=== PATIENT | female | born 1980 | race Caucasian/White ===

== ENCOUNTER 2020-09-30 22:53 | Emergency (ER) | payer BC, SELFPAY ==
--- NOTE | ~2020-09-30 | CT_ITS ---
EXAMINATION: CT ABDOMEN AND PELVIS WITHOUT CONTRAST CLINICAL INFORMATION: Left flank pain. COMPARISON: None. TECHNIQUE: Contiguous axial thin section helical images of the abdomen and pelvis were performed without oral or IV contrast. The data set was reformatted in the coronal and sagittal planes and reviewed on an independent workstation. DLP: 797 mGy-cm. FINDINGS: The visualized lung bases are clear. The visualized portions of the heart are unremarkable. There is a small hiatal hernia. The liver is of normal size and attenuation without focal lesions nor intrahepatic biliary ductal dilation. A normal gallbladder is identified. There is no wall thickening or discernible pericholecystic fluid. The spleen, pancreas, adrenal glands are unremarkable. Both kidneys are of normal size and attenuation. There is left grade 2 hydroureteronephrosis secondary to a 5 mm obstructive distal left ureteral calculus. There is mild left perinephric and periureteral stranding. There is no abdominal free fluid. There is neither mesenteric nor retroperitoneal lymphadenopathy. Normal unopacified loops of small and large bowel are identified. There is a 3.2 cm right ovarian cyst There is no pelvic free fluid. The urinary bladder is unremarkable. There is neither pelvic nor inguinal lymphadenopathy. Bone windows: Neither sclerotic nor lytic bone lesions are identified. CT/CT abdomen pelvis wo con IMPRESSION: Left grade 2 hydroureteronephrosis secondary to an obstructive 5 mm distal left ureteral calculus. 3.2 cm right ovarian cyst. Automated exposure control (Care Dose) Adjustment of the mA and/or kv according to patient size (this includes techniques or standardized protocols for targeted exams where dose is matched to indication / reason for exam; i.e. extremities or head).
[2020-09-30 23:00] VITALS: BP 159/79; PULSE 94; RESP 20; TEMP 37.3; O2SAT 93; BMI 33.4
--- NOTE | 2020-09-30 23:15 | ED_ITS ---
HPI - Female Genitourinary General Chief complaint: Urogenital-Female Stated complaint: vomiting,pelvic pain Time Seen by Provider: 09/30/20 23:07 Source: patient Mode of arrival: ambulatory Limitations: no limitations History of Present Illness HPI Narrative: Patient miscarriage us today complaining of sudden onset of sharp pain and left flank radiating left lower quadrant with nausea vomited 2 times prior to arrival just prior to arrival also complaining of nasal congestion and feel left ear is blocked tested negative for COVID . Patient's mother has history of kidney stones no hematuria noted no urinary complaints no vaginal discharge no history of any ovarian cyst Related Data Previous Rx's Medication Instructions Recorded ondansetron 4 mg PO Q6-8H PRN #7 tab 10/01/20 oxycodone 5 mg PO Q6H PRN #20 tab 10/01/20 tamsulosin [Flomax] 0.4 mg PO DAILY #7 cap 10/01/20 Allergies Allergy/AdvReac Type Severity Reaction Status Date / Time amoxicillin Allergy Rash Verified 09/30/20 22:59 Review of Systems Review of Systems: Constitutional : No Weight loss, No Fever, No Chills ENT/Mouth : No sore throat, No Rhinorrhea Eyes: No Eye Pain, No Swelling Cardiovascular : No Chest Pain, no palpitations Respiratory : No Cough, No Sputum, no shortness of breath Gastrointestinal : + Nausea, ++ Vomiting, No Diarrhea, + abdominal Pain, no black stools Genitourinary : No Dysuria, No Urinary Frequency Musculoskeletal : No joint pain, No Myalgias, No Joint Swelling Skin : No Skin Lesions, No rash Neuro : No Weakness, No Numbness, No Dizziness, No Headache Psych : No Anxiety/Panic, No Depression Heme/Lymph: No Bruising, No Lymphadenopathy Endocrine : No Polyuria, No Polydipsia All other systems reviewed and are negative PMFSH Past Medical History Medical History No known health problems Social History Social History Advance Directives: No Advance Directives Information Provided: No Physical Exam Vital Signs: Vital Signs: Last Vital Signs Temp 99.2 F 09/30/20 23:00 Pulse 94 09/30/20 23:00 Resp 20 09/30/20 23:00 BP 159/79 H 09/30/20 23:00 Pulse Ox 93 09/30/20 23:00 Body Mass Index 33.4 Appearance: Alert. Oriented X3. In moderate distress. Eyes: Pupils equal, round and reactive to light. ENT: Pharynx normal. Neck: Normal inspection. Neck supple. CVS: Normal heart rate and rhythm. Pulses normal. Respiratory: No respiratory distress. Breath sounds normal. Abdomen: Soft and nontender. Bowel sounds are present, no mass palpable, left CVA tenderness Skin: Skin warm and dry. Normal skin color. Normal skin turgor. Extremities: No lower extremity edema. Neuro: Oriented X 3. No motor deficit. No sensory deficit. MDM - Female Genitourinary MDM Narrative Medical decision making narrative: Patient's sudden onset of left flank and left lower quadrant pain sharp in character family history of kidney stone and mother clinically seems to be kidney stone will give IV fluids pain medication CT scan abdomen rule out kidney stone 00:30 CT scan showed mild hydro with 3 mm stone in [place] , final report pending Lab Data Attestation: I reviewed the patient's lab results. Result diagrams: 09/30/20 23:42 09/30/20 23:42 Labs: Lab Results 09/30/20 09/30/20 09/30/20 Range/Units 23:42 23:42 23:42 WBC 9.5 (4.8-10.8) X10*3/uL RBC 4.60 (4.20-5.50) X10*6/uL Hgb 13.9 (12.0-16.0) g/dl Hct 40.0 (37-47) % MCV 87.0 (80-98) fL MCH 30.2 (27.0-33.0) pg MCHC 34.8 (31.0-35.0) g/dl RDW 13.0 (11.0-16.0) % Plt Count 245 (160-400) X10*3/uL MPV 9.3 L (9.4-12.3) fL Immature Gran % (Auto) 0.2 (0.0-0.4) % Neut % (Auto) 48.9 (45-73) % Lymph % (Auto) 42.7 H (20-40) % [place] % (Auto) 6.2 (2-11) % Eos % (Auto) 1.6 (0-4) % Baso % (Auto) 0.4 (0-2) % Lymph # (Auto) 4.1 (1.2-4.9) X10*3/uL [place] # (Auto) 0.6 (0.1-1.2) X10*3/uL Eos # (Auto) 0.2 (0.0-0.4) X10*3/uL Baso # (Auto) 0.0 (0.0-0.2) X10*3/uL Abs Immat Gran (auto) 0.02 (0.00-0.03) X10*3/uL Absolute Neuts (auto) 4.7 (2.0-8.3) X10*3/uL Absolute Nucleated RBC 0.000 (0.0-0.012) X10*3/uL Nucleated RBC % (auto) 0.0 (0.0-0.2) /100WBC Sodium (135-145) mmol/L Potassium (3.3-5.1) mmol/L Chloride (96-108) mmol/L Carbon Dioxide (22-29) mmol/L Anion Gap (12-20) BUN (9-16) mg/dL Creatinine (0.5-1.4) mg/dL Estim Creat Clear Calc Estimated GFR Random Glucose (60-115) mg/dL Calcium (8.4-10.2) mg/dL Urine Color YELLOW Urine Appearance CLEAR Urine pH 6.0 (5.0-8.0) Ur Specific [place] >= 1.030 H (1.005-1.025) Urine Protein NEG (NEG-TRACE) MG/DL Urine Glucose (UA) NEG (NEG) MG/DL Urine Ketones NEG (NEG) MG/DL Urine Blood 1+ H (NEG) Urine Nitrite NEG (NEG) Ur Leukocyte Esterase NEG (NEG) Urine RBC 10-14 H (0) /HPF Urine WBC 1-4 (0-4) /HPF Ur Squamous Epith Cells 2+ /LPF Urine Bacteria 2+ /LPF Urine Mucus 1+ /LPF Urine Test NEGATIVE (NEGATIVE) 09/30/20 Range/Units 23:42 WBC (4.8-10.8) X10*3/uL RBC (4.20-5.50) X10*6/uL Hgb (12.0-16.0) g/dl Hct (37-47) % MCV (80-98) fL MCH (27.0-33.0) pg MCHC (31.0-35.0) g/dl RDW (11.0-16.0) % Plt Count (160-400) X10*3/uL MPV (9.4-12.3) fL Immature Gran % (Auto) (0.0-0.4) % Neut % (Auto) (45-73) % Lymph % (Auto) (20-40) % [place] % (Auto) (2-11) % Eos % (Auto) (0-4) % Baso % (Auto) (0-2) % Lymph # (Auto) (1.2-4.9) X10*3/uL [place] # (Auto) (0.1-1.2) X10*3/uL Eos # (Auto) (0.0-0.4) X10*3/uL Baso # (Auto) (0.0-0.2) X10*3/uL Abs Immat Gran (auto) (0.00-0.03) X10*3/uL Absolute Neuts (auto) (2.0-8.3) X10*3/uL Absolute Nucleated RBC (0.0-0.012) X10*3/uL Nucleated RBC % (auto) (0.0-0.2) /100WBC Sodium 143 (135-145) mmol/L Potassium 3.8 (3.3-5.1) mmol/L Chloride 106 (96-108) mmol/L Carbon Dioxide 25 (22-29) mmol/L Anion Gap 16 (12-20) BUN 14 (9-16) mg/dL Creatinine 0.90 (0.5-1.4) mg/dL Estim Creat Clear Calc 105.7 Estimated GFR > 60 Random Glucose 98 (60-115) mg/dL Calcium 8.8 (8.4-10.2) mg/dL Urine Color Urine Appearance Urine pH (5.0-8.0) Ur Specific [place] (1.005-1.025) Urine Protein (NEG-TRACE) MG/DL Urine Glucose (UA) (NEG) MG/DL Urine Ketones (NEG) MG/DL Urine Blood (NEG) Urine Nitrite (NEG) Ur Leukocyte Esterase (NEG) Urine RBC (0) /HPF Urine WBC (0-4) /HPF Ur Squamous Epith Cells /LPF Urine Bacteria /LPF Urine Mucus /LPF Urine Test (NEGATIVE) Discharge Plan Discharge Clinical Impression: Kidney stone on left side Patient Disposition: Home, Self-Care Instructions: Kidney Stones (ED) Additional Instructions: Drink plenty of fluids Pain medicine as advised. Follow-up with urologist Prescriptions: New ondansetron 4 mg tablet,disintegrating 4 mg PO Q6-8H PRN (Reason: nausea and vomiting) Qty: 7 RF: 0 oxycodone 5 mg tablet 5 mg PO Q6H PRN (Reason: Pain, Moderate) Qty: 20 RF: 0 tamsulosin [Flomax] 0.4 mg capsule 0.4 mg PO DAILY Qty: 7 RF: 0 Referrals: Yosef Teran MD [Physician] - 1 week
[2020-09-30] MEDS: 0.9 % Sodium Chloride 1,000 ML 999 ML IVCONT (23:35)
[2020-09-30] MEDS: Morphine Sulfate 4 MG/ML CARTRIDGE IVPUSH (23:35)
[2020-09-30] MEDS: ondansetron HCL 4 MG/2 ML VIAL IVPUSH (23:35)
[2020-09-30 23:49] LABS: MANUAL DIFF FLAG NO
[2020-09-30 23:50] LABS: Basophils Percent Auto 0.4 % (0-2); Eosinophils Absolute Auto 0.2 X10*3/uL (0.0-0.4); Eosinophils Percent Auto 1.6 % (0-4); Hemoglobin 13.9 g/dl (12.0-16.0); Imm Gran Abs Auto 0.02 X10*3/uL (0.00-0.03); Imm Gran Pct Auto 0.2 % (0.0-0.4); Lymphocytes Absolute Auto 4.1 X10*3/uL (1.2-4.9); Lymphocytes Percent Auto 42.7 % (20-40); Mean Corpuscular HGB Conc 34.8 g/dl (31.0-35.0); Mean Corpuscular Hemoglobin 30.2 pg (27.0-33.0); Mean Platelet Volume 9.3 fL (9.4-12.3); Monocytes Absolute Auto 0.6 X10*3/uL (0.1-1.2); Monocytes Percent Auto 6.2 % (2-11); Neutrophils Absolute Auto 4.7 X10*3/uL (2.0-8.3); Neutrophils Percent Auto 48.9 % (45-73); Platelet Count 245 X10*3/uL (160-400); White Blood Count 9.5 X10*3/uL (4.8-10.8)
[2020-09-30 23:52] LABS: Glucose Urine UA NEG (NEG); Leukocyte Esterase Urine NEG (NEG); Nitrite Urine NEG (NEG); Specific Gravity - Urine >= 1.030 (1.005-1.025); Urine Blood 1+ (NEG); Urine Ketones NEG (NEG); Urine Protein NEG (NEG-TRACE)
[2020-09-30 23:53] LABS: Appearance Urine CLEAR; Color Urine YELLOW
[2020-10-01] VITALS: BP 140/80; PULSE 91; RESP 20; O2SAT 96
[2020-10-01] LABS: Bacteria Urine 2+ /LPF; Mucus Urine 1+ /LPF; Squamous Epithelial Cell Urine 2+ /LPF
[2020-10-01 00:01] LABS: UPreg QC Valid YES; Urine Pregnancy NEGATIVE (NEGATIVE)
[2020-10-01] MEDS: ondansetron HCL 4 MG/2 ML VIAL IVPUSH (00:12)
[2020-10-01 00:18] LABS: Anion Gap 16 (12-20); Blood Urea Nitrogen 14 mg/dL (9-16); Calcium 8.8 mg/dL (8.4-10.2); Carbon Dioxide 25 mmol/L (22-29); Chloride 106 mmol/L (96-108); Creatinine Clr Calc Pharmacy 105.7; Estimated Glomerular Filt Rate > 60; Glucose Random 98 mg/dL (60-115); Potassium 3.8 mmol/L (3.3-5.1); Sodium 143 mmol/L (135-145)
[2020-10-01] MEDS: Ketorolac Tromethamine 30 MG/ML VIAL IVPUSH (00:40)
[2020-10-01] MEDS: 0.9 % Sodium Chloride 1,000 ML 999 ML IVCONT (00:40)
[2020-10-01] MEDS: Tamsulosin HCL 0.4 MG CAPSULE PO (00:52)
[2020-10-01] MEDS: Morphine Sulfate 2 MG/ML CARTRIDGE IVPUSH (01:12)
== END 2020-10-01 01:57 | disposition home or self-care (01) ==
PROVIDERS: Internal Medicine; Emergency Provider Emergency Medicine
DX: N20.0 Calculus of kidney (principal); R10.32 Left lower quadrant pain; Z79.899 Other long term (current) drug therapy
CPT/HCPCS: 36415; 74176; 80048; 81001; 81025; 85025; 96365; 96375; 99284; J1100; J1885; J2270; J2405

== ENCOUNTER 2021-11-01 01:03 | Emergency (ER) | payer OTHER, SELFPAY ==
--- NOTE | ~2021-11-01 | US_ITS ---
EXAMINATION: US RETROPERITONEAL LIMITED (RENAL ONLY) CLINICAL INFORMATION: Right flank pain.. COMPARISON: CT 10/01/2020 TECHNIQUE: Real-time imaging of the kidneys. FINDINGS: RIGHT KIDNEY: 12.8 x 5.9 x 6.1 cm (SAG x AP x TRV). The kidney is normal in size, contour, and echogenicity. Renal cortical thickness is normal. No calculi or focal parenchymal lesions. Mild hydronephrosis. LEFT KIDNEY: 12.5 x 5.9 x 6.2 cm (SAG x AP x TRV). The kidney is normal in size, contour, and echogenicity. Renal cortical thickness is normal. No calculi or focal parenchymal lesions. No hydronephrosis. US/US renal BI IMPRESSION: Mild hydronephrosis. No calculi seen.
[2021-11-01 01:16] VITALS: BP 134/79; PULSE 107; RESP 16; TEMP 36.3; O2SAT 96; BMI 35.2
[2021-11-01 01:49] LABS: Basophils Percent Auto 0.2 % (0-2); Eosinophils Percent Auto 0.2 % (0-4); Hematocrit 31.4 % (37.0-47.0); Hemoglobin 10.9 g/dl (12.0-16.0); Imm Gran Abs Auto 0.13 X10*3/uL (0.00-0.03); Imm Gran Pct Auto 0.8 % (0.0-0.4); Lymphocytes Absolute Auto 2.1 X10*3/uL (1.2-4.9); Lymphocytes Percent Auto 13.1 % (20-40); MANUAL DIFF FLAG NO; Mean Corpuscular HGB Conc 34.7 g/dl (31.0-35.0); Mean Corpuscular Hemoglobin 29.8 pg (27.0-33.0); Mean Corpuscular Volume 85.8 fL (80.0-98.0); Mean Platelet Volume 9.2 fL (9.4-12.3); Monocytes Absolute Auto 0.7 X10*3/uL (0.1-1.2); Monocytes Percent Auto 4.5 % (2-11); Neutrophils Absolute Auto 13.1 x10*3/uL (2.0-8.3); Neutrophils Percent Auto 81.2 % (45-73); Platelet Count 297 X10*3/uL (160-400); Red Blood Count 3.66 X10*6/uL (4.20-5.50); Red Cell Distribution Width 13.4 % (11.0-16.0); White Blood Count 16.1 X10*3/uL (4.8-10.8)
[2021-11-01 01:51] LABS: Appearance Urine HAZY; Color Urine YELLOW; Glucose Urine UA NEG (NEG); Leukocyte Esterase Urine NEG (NEG); Nitrite Urine NEG (NEG); Specific Gravity - Urine >= 1.030 (1.005-1.025); UACC Culture Trigger NO; Urine Blood 3+ (NEG); Urine Ketones NEG (NEG); Urine Protein NEG (NEG-TRACE)
[2021-11-01 01:58] LABS: Bacteria Urine 3+ /LPF; Mucus Urine 1+ /LPF; RBC Urine 30-49 /HPF (0); Squamous Epithelial Cell Urine 2+ /LPF
[2021-11-01 02:07] VITALS: BP 154/92; PULSE 102; RESP 18; TEMP 36.8; O2SAT 96
[2021-11-01 02:08] LABS: Alanine Aminotransferase 14 U/L (0-31); Albumin Level 3.6 g/dL (3.5-5.0); Alkaline Phosphatase 83 U/L (39-117); Anion Gap 13 (12-20); Aspartate Amino Transferase 16 U/L (5-31); Bilirubin Total 0.2 mg/dL (0.0-1.0); Blood Urea Nitrogen 9 mg/dL (9-16); Calcium 10.2 mg/dL (8.4-10.2); Carbon Dioxide 23 mmol/L (22-29); Chloride 106 mmol/L (96-108); Creatinine Clr Calc Pharmacy 130.6; Estimated Glomerular Filt Rate > 60; Glucose Random 118 mg/dL (60-115); Lipase 26 U/L (8-78); Sodium 138 mmol/L (135-145); Total Protein 6.4 g/dL (6.5-8.0)
[2021-11-01 02:37] LABS: HCG Quantitative 19136 mIU/mL
--- NOTE | 2021-11-01 02:49 | ED.ABDPAIN ---
HPI - Abdominal Pain General Chief Complaint: Abdominal Pain Stated Complaint: 4 Months /Abd pain Time Seen by Provider: 11/01/21 02:47 Source: patient and family Mode of arrival: ambulatory Limitations: no limitations History of Present Illness HPI narrative: 41-year-old female came in for evaluation of right flank pain. Patient is at 17 weeks presented with right flank pain started at 20:00 as an abrupt onset, pain was described as intermittent colicky pain in the right flank area radiates to the right groin, patient also noticed dark urine., patient with history of kidney stone and the pain she has today is similar when she had a kidney stone in the past. Patient been having nausea and vomiting associated with that. Otherwise patient declined any uterine contractions, or vaginal bleeding. Related Data Previous Rx's Medication Instructions Recorded ondansetron 4 mg disintegrating 4 mg PO Q6-8H PRN #7 tab 10/01/20 tablet oxycodone 5 mg tablet 5 mg PO Q6H PRN #20 tab 10/01/20 tamsulosin 0.4 mg capsule (Flomax) 0.4 mg PO DAILY #7 cap 10/01/20 Allergies Allergy/AdvReac Type Severity Reaction Status Date / Time amoxicillin Allergy Rash Verified 11/01/21 01:19 Review of Systems Review of Systems All other systems are reviewed and are negative Constitutional: Reports as per HPI and Reports no additional constitutional complaints Eyes: Reports as per HPI and Reports no additional eye complaints Reports system reviewed and no additional complaints, except as documented Cardiovascular: Reports as per HPI and Reports no additional cardiovascular complaints Respiratory: Reports as per HPI and Reports no additional respiratory complaints Gastrointestinal: Reports as per HPI and Reports no additional gastrointestinal complaints Genitourinary: Reports no additional female genitourinary complaints Musculoskeletal: Reports no additional musculoskeletal complaints Skin/Breast: Reports system reviewed and no additional complaints, except as docu Psychiatric: Reports no additional psychiatric complaints Endocrine: Reports no additional endocrine complaints Hematologic/Lymphatic: Reports no additional hematologic/lymphatic complaints Allergic/Immunologic: Reports no additional allergic/immunologic complaints Reports system reviewed and no additional complaints, except as documented and Reports Abnormal speech present [facility] Past Medical History Medical History No known health problems Social History Social History Advance Directives: No Physical Exam ED Vital Signs: Vital Signs - 24 hr 11/01/21 01:16 11/01/21 02:07 11/01/21 04:00 Temperature 97.4 F 98.3 F Pulse Rate 107 H 102 H 94 Respiratory Rate 16 18 14 Blood Pressure 134/79 154/92 H 142/74 H Pulse Oximetry 96 96 95 BMI result Body Mass Index 35.2 Vital signs have been reviewed as appeared to be correct. Blood pressure normal. Heart rate elevated. Respiration rate normal. Temperature normal. Oxygen saturation normal. Appearance: Alert. Oriented X3. No acute distress. Head: Normal external exam. Normocephalic. Atraumatic. No [place] signs noted. No raccoon eyes noted Eyes: PERRLA. EOMI. Conjunctiva and sclera normal. Eyelids normal. ENT: TM's Normal. Pharynx normal. Uvula midline. Moist mucous membranes. No trismus noted. No drooling noted. No muffled voice noted. Neck: Normal inspection. Neck supple. FROM. No adenopathy. Thyroid Normal. No meningeal signs. No neck mass noted. CVS: Normal heart rate and rhythm. Heart sound normal. No murmurs noted. Pulses normal throughout. Respiratory: No respiratory distress. Painless inspiration. Breath sounds normal. No wheezes/rales/rhonchi noted. Chest nontender. No accessory muscle usage noted or decreased air movement noted. Abdomen: Soft and nontender uterus up to3 cm below the umbilicus. Bowel sounds normal in all 4 quadrants. No distention noted. No organomegaly noted. No visible injury noted. Back: Right CVA tenderness. Full range of motion noted. Skin: Skin warm and dry. Normal skin color. Normal skin turgor. No rashes/lesions/lacerations noted. Extremities: No lower extremity edema. Extremities exhibit normal range of motion. Extremities nontender. Neuro: Oriented X 3. Cranial nerve exam: II-XII are grossly intact No motor deficit. No sensory deficit. Reflexes normal. Course Course Course Narrative: Assessment and plan. 41-year-old female G2P P0 with history of kidney stone min with right flank pain, ultrasound showed hydronephrosis on the right side but did not show stone shadowing. After multiple doses of morphine patient now is pain free, no flank tenderness, no vaginal bleeding. Leukocytosis secondary to stress. MDM - Abdominal Pain Lab Data Attestation: I reviewed the patient's lab results. Result diagrams: 11/01/21 01:44 11/01/21 01:44 Labs: Lab Results 11/01/21 11/01/21 11/01/21 Range/Units 01:44 01:44 01:44 WBC 16.1 H (4.8-10.8) X10*3/uL RBC 3.66 L (4.20-5.50) X10*6/uL Hgb 10.9 L (12.0-16.0) g/dl Hct 31.4 L (37.0-47.0) % MCV 85.8 (80.0-98.0) fL MCH 29.8 (27.0-33.0) pg MCHC 34.7 (31.0-35.0) g/dl RDW 13.4 (11.0-16.0) % Plt Count 297 (160-400) X10*3/uL MPV 9.2 L (9.4-12.3) fL Immature Gran % (Auto) 0.8 H (0.0-0.4) % Neut % (Auto) 81.2 H (45-73) % Lymph % (Auto) 13.1 L (20-40) % [place] % (Auto) 4.5 (2-11) % Eos % (Auto) 0.2 (0-4) % Baso % (Auto) 0.2 (0-2) % Lymph # (Auto) 2.1 (1.2-4.9) X10*3/uL [place] # (Auto) 0.7 (0.1-1.2) X10*3/uL Eos # (Auto) 0.0 (0.0-0.4) X10*3/uL Baso # (Auto) 0.0 (0.0-0.2) X10*3/uL Abs Immat Gran (auto) 0.13 H (0.00-0.03) X10*3/uL Absolute Neuts (auto) 13.1 H (2.0-8.3) x10*3/uL Absolute Nucleated RBC 0.000 (0.0-0.012) X10*3/uL Nucleated RBC % (auto) 0.0 (0.0-0.2) /100WBC Sodium 138 (135-145) mmol/L Potassium 4.0 (3.3-5.1) mmol/L Chloride 106 (96-108) mmol/L Carbon Dioxide 23 (22-29) mmol/L Anion Gap 13 (12-20) BUN 9 (9-16) mg/dL Creatinine 0.71 (0.5-1.4) mg/dL Estim Creat Clear Calc 130.6 Estimated GFR > 60 Random Glucose 118 H (60-115) mg/dL Calcium 10.2 D (8.4-10.2) mg/dL Total Bilirubin 0.2 (0.0-1.0) mg/dL AST 16 (5-31) U/L ALT 14 (0-31) U/L Alkaline Phosphatase 83 (39-117) U/L Total Protein 6.4 L (6.5-8.0) g/dL Albumin 3.6 (3.5-5.0) g/dL Lipase 26 (8-78) U/L Beta HCG, Quant 40550 mIU/mL Urine Color Urine Appearance Urine pH (5.0-8.0) Ur Specific [place] (1.005-1.025) Urine Protein (NEG-TRACE) MG/DL Urine Glucose (UA) (NEG) MG/DL Urine Ketones (NEG) MG/DL Urine Blood (NEG) Urine Nitrite (NEG) Ur Leukocyte Esterase (NEG) Urine RBC (0) /HPF Urine WBC (0-4) /HPF Ur Squamous Epith Cells /LPF Urine Bacteria /LPF Urine Mucus /LPF 11/01/21 Range/Units 01:44 WBC (4.8-10.8) X10*3/uL RBC (4.20-5.50) X10*6/uL Hgb (12.0-16.0) g/dl Hct (37.0-47.0) % MCV (80.0-98.0) fL MCH (27.0-33.0) pg MCHC (31.0-35.0) g/dl RDW (11.0-16.0) % Plt Count (160-400) X10*3/uL MPV (9.4-12.3) fL Immature Gran % (Auto) (0.0-0.4) % Neut % (Auto) (45-73) % Lymph % (Auto) (20-40) % [place] % (Auto) (2-11) % Eos % (Auto) (0-4) % Baso % (Auto) (0-2) % Lymph # (Auto) (1.2-4.9) X10*3/uL [place] # (Auto) (0.1-1.2) X10*3/uL Eos # (Auto) (0.0-0.4) X10*3/uL Baso # (Auto) (0.0-0.2) X10*3/uL Abs Immat Gran (auto) (0.00-0.03) X10*3/uL Absolute Neuts (auto) (2.0-8.3) x10*3/uL Absolute Nucleated RBC (0.0-0.012) X10*3/uL Nucleated RBC % (auto) (0.0-0.2) /100WBC Sodium (135-145) mmol/L Potassium (3.3-5.1) mmol/L Chloride (96-108) mmol/L Carbon Dioxide (22-29) mmol/L Anion Gap (12-20) BUN (9-16) mg/dL Creatinine (0.5-1.4) mg/dL Estim Creat Clear Calc Estimated GFR Random Glucose (60-115) mg/dL Calcium (8.4-10.2) mg/dL Total Bilirubin (0.0-1.0) mg/dL AST (5-31) U/L ALT (0-31) U/L Alkaline Phosphatase (39-117) U/L Total Protein (6.5-8.0) g/dL Albumin (3.5-5.0) g/dL Lipase (8-78) U/L Beta HCG, Quant mIU/mL Urine Color YELLOW Urine Appearance HAZY Urine pH 6.0 (5.0-8.0) Ur Specific [place] >= 1.030 H (1.005-1.025) Urine Protein NEG (NEG-TRACE) MG/DL Urine Glucose (UA) NEG (NEG) MG/DL Urine Ketones NEG (NEG) MG/DL Urine Blood 3+ H (NEG) Urine Nitrite NEG (NEG) Ur Leukocyte Esterase NEG (NEG) Urine RBC 30-49 H (0) /HPF Urine WBC 1-4 (0-4) /HPF Ur Squamous Epith Cells 2+ /LPF Urine Bacteria 3+ /LPF Urine Mucus 1+ /LPF Imaging Data Renal ultrasound: Attestation: I personally reviewed and interpreted this imaging study as follows: Radiologist's impression: Mild hydronephrosis. No calculi seen. Discharge Plan Discharge Clinical Impression: , Renal colic on right side Patient Disposition: Home, Self-Care Instructions: Renal Colic (ED) Additional Instructions: Drink plenty of fluid, if he have any flank pain take Tylenol and return to the ED. Follow-up with your OBGYN Prescriptions: No Action ondansetron 4 mg tablet,disintegrating 4 mg PO Q6-8H PRN (Reason: nausea and vomiting) Qty: 7 0RF oxycodone 5 mg tablet 5 mg PO Q6H PRN (Reason: Pain, Moderate) Qty: 20 0RF tamsulosin [Flomax] 0.4 mg capsule 0.4 mg PO DAILY Qty: 7 0RF Referrals: Physician,Unknown J [Primary Care Provider] - Interventions: ED Discharge Assessment Last Done: 11/01/21 07:27 Discharge Date/Time: 11/01/21 07:28
[2021-11-01] MEDS: 0.9 % Sodium Chloride 1,000 ML 999 ML IV (03:16)
[2021-11-01] MEDS: Morphine Sulfate 2 MG/ML CARTRIDGE IVPUSH (03:16)
--- NOTE | 2021-11-01 03:22 | PC.NURSE ---
Pt medicated per AUG. Off to [facility]
[2021-11-01] MEDS: ondansetron HCL 4 MG/2 ML VIAL IVPUSH (03:30)
[2021-11-01 04:00] VITALS: BP 142/74; PULSE 94; RESP 14; O2SAT 95
[2021-11-01] MEDS: Morphine Sulfate 2 MG/ML CARTRIDGE 1 MG IVPUSH (04:50)
== END 2021-11-01 07:28 | disposition home or self-care (01) ==
PROVIDERS: Emergency Provider Emergency Medicine
DX: O26.832 Pregnancy related renal disease, second trimester (principal); R10.9 Unspecified abdominal pain; N28.9 Disorder of kidney and ureter, unspecified; Z3A.17 17 weeks gestation of pregnancy
CPT/HCPCS: 36415; 76775; 80053; 81001; 83690; 84702; 85025; 96361; 96374; 96375; 96376; 99283; 99284; J2270; J2405

== ENCOUNTER 2024-02-05 13:19 | Outpatient (AMB) | payer BC, SELFPAY ==
--- NOTE | 2024-02-05 13:24 | AM.OFFWIN_ITS ---
Intake Vital Signs 02/05/24 13:27 Height 5 ft 7 in Weight 232 lb BMI 36.3 BP 118/80 Blood Pressure Location Rt brachial Position Sitting Pulse 94 Pulse Source Pulse Oximeter Temp 99.4 F Temp Source Oral Pulse Oximetry (%) 96 Oxygen Delivery Method Room Air Intake Visit Reasons: EP Headache, sore throat/COVID [phone] Intake Note: pt c/o headache, sore throat, fever started 2 days ago. Post nasal drip x 2 weeks. Covid positive this morning. Patient Tobacco Use Status: Never used Tobacco Allergies amoxicillin Allergy (Verified 02/05/24 13:26) Rash Do you need a note to return to daycare/school/sports/work: Yes HPI HPI Comments History of Present Illness Details 43 y/o female patient who presents to [facility] walk [facility] clinic with c/o URI symptoms. She tested positive for COVID this morning. Her mother is positive for COVID also. Pt asking for Paxlovid. [facility] Medical History No known health problems Social History Patient Tobacco Use Status: Never used Tobacco Review of Systems Const All systems reviewed & are unremarkable except as noted in HPI and below Physical Exam Vital Signs: Last Vital Signs Temp 99.4 F 02/05/24 13:27 Pulse 94 02/05/24 13:27 BP 118/80 02/05/24 13:27 Pulse Ox 96 02/05/24 13:27 Oxygen Delivery Method Room Air 02/05/24 13:27 BMI result Body Mass Index 36.3 Const General: cooperative and no acute distress Nutritional Appearance: obese Orientation/consciousness: patient oriented x3 HEENT Head: Yes normocephalic Ears: external ears normal and TM's normal bilaterally General nose exam: Nasal discharge present Face and sinus: Yes sinuses nontender Throat: Yes postnasal drainage Resp Effort & Inspection: normal respiratory effort and able to speak in complete sentences Auscultation: clear to auscultation bilaterally, no crackles, no rales, no rhonchi and no wheezes Cardio Heart sounds: S1 normal heart sound present and S2 normal heart sound present Neuro General: patient oriented x3 Assessment & Plan Assessment & Plan (1) SARS-CoV-2 positive: Code(s): U07.1 - COVID-19 Plan: Pt currently taking YENNY Paxlovid interacts with YENNY she is taking. OTC cold remedies Hydrate with warm fluids Acetaminophen for pain relief Plan Isolation precautions. Coding Level of Care Code Est Pt Level 3 (94069) Diagnoses SARS-CoV-2 positive U07.1 Time Spent (min) 15
[2024-02-05 13:27] VITALS: BP 118/80; PULSE 94; TEMP 37.4; O2SAT 96; BMI 36.3
== END 2024-02-05 14:01 | disposition home or self-care (01) ==
PROVIDERS: PCP Internal Medicine; Visit Provider Nurse Practitioner Family
DX: U07.1 COVID-19 (principal)
CPT/HCPCS: 99213

== ENCOUNTER 2024-02-21 00:16 | Emergency (ER) | payer BC, SELFPAY ==
--- NOTE | ~2024-02-21 | CT_ITS ---
EXAMINATION: CT ABDOMEN AND PELVIS WITHOUT CONTRAST CLINICAL INFORMATION: Right flank pain COMPARISON: 10/01/2020 TECHNIQUE: Multidetector volumetric imaging was performed from the superior aspect of the liver through the pubic symphysis. Sagittal and coronal reformatted images were obtained on the technologist's workstation. This CT examination was performed using dose optimization techniques as appropriate, variously including the following: *Automated exposure control *Adjustment of mA and/or kV according to patient size (this includes techniques or standardized protocols for targeted exams where dose is matched to indication/reason for exam; i.e. extremities or head) *Use of iterative reconstruction technique DLP: 881 mGy-cm FINDINGS: LUNG BASES: Minimal bibasilar atelectasis. LIVER, GALLBLADDER, AND BILIARY TREE: The liver is normal in size, shape, and attenuation. No focal hepatic lesion or biliary ductal dilatation is identified on this noncontrast exam. The gallbladder is unremarkable with no evidence of radiopaque gallstones, gallbladder wall thickening, or obvious pericholecystic inflammatory changes. PANCREAS: Unremarkable. SPLEEN: Unremarkable. ADRENAL GLANDS: Unremarkable. KIDNEYS AND URETERS: There is a proximal right ureteral calculus measuring up to 8 mm with moderate hydronephrosis and perinephric stranding. No left-sided hydronephrosis or obstructing calculus. Punctate calculus noted in the left lower pole. BLADDER: Unremarkable. GASTROINTESTINAL TRACT: No evidence of bowel obstruction or significant wall thickening. The appendix is unremarkable. No free fluid or free air is seen. ABDOMINAL WALL: No significant hernia is appreciated. LYMPH NODES: Normal. VASCULAR: Unremarkable. PELVIC VISCERA: Unremarkable. OSSEOUS STRUCTURES: Unremarkable. CT/CT abdomen pelvis wo IV con IMPRESSION: Proximal right ureteral calculus measuring up to 8 mm with moderate hydronephrosis. Electronically signed by: Gerry Alvarado MD 02/21/2024 03:54 AM EDT RP
[2024-02-21 00:19] VITALS: BP 156/84; PULSE 96; RESP 20; TEMP 36.3; O2SAT 95; BMI 36.0
--- NOTE | 2024-02-21 00:55 | ED_ITS ---
HPI - General Adult General Chief complaint: Abdominal Pain Stated complaint: kidney stone/pain in side Time Seen by Provider: 02/21/24 00:55 History of Present Illness ED Provider: miroslava RANDOLPH narrative: The patient is a 43-year-old female. She has a history of kidney stones. She says that she has recently been seeing the urologist Dr. Jason Aquino regarding kidney stones. She presents to the emergency room with worsening right flank pain over the last 2 days. This degree of pain is new for her. She is extremely uncomfortable with associated nausea and vomiting. No fevers. She describes severe right-sided flank pain. no chest pain or shortness of breath. Related Data Home Medications ?Medication ?Instructions ?Recorded ?Confirmed cholecalciferol (vitamin D3) 50 50 mcg PO DAILY 03/14/22 mcg (2,000 unit) capsule citalopram 40 mg tablet 40 mg PO DAILY 03/14/22 norgestimate 0.18 mg/0.215 mg/0.25 1 tab PO DAILY 02/05/24 mg-ethinyl estradiol 25 mcg tablet (Mtl-Dh-Rphesu) potassium citrate 10 mEq (1,080 10 meq PO TID 02/05/24 mg) tablet,extended release Previous Rx's ?Medication ?Instructions ?Recorded ibuprofen 600 mg tablet 600 mg PO Q6H PRN pain #14 tabs 02/21/24 ondansetron 4 mg disintegrating 4 mg PO Q6H PRN nausea and 02/21/24 tablet vomiting #12 tabs oxycodone 5 mg tablet 5 mg PO Q6H PRN pain #16 tabs 02/21/24 tamsulosin 0.4 mg capsule 0.4 mg PO BEDTIME #7 caps 02/21/24 Allergies Allergy/AdvReac Type Severity Reaction Status Date / Time amoxicillin Allergy Rash Verified 02/21/24 00:20 Review of Systems 2 Review of Systems: Yes all other systems are reviewed and are negative PMFSH Past Medical History Medical History No known health problems Social History Social History Patient Tobacco Use Status: Never used Tobacco Smoked in Last 30 Days: No Use of substances other than those prescribed or required for medical reasons: No Advance Directives: No Advance Directives Information Provided: Yes Do you have a plan to hurt others: No Plan Physical Exam ED Vital Signs: Vital Signs - 24 hr 02/21/24 00:19 02/21/24 01:21 02/21/24 03:34 Temperature 97.4 F 98.5 F Pulse Rate 96 75 Respiratory Rate 20 18 16 Blood Pressure 156/84 H 117/59 L Pulse Oximetry 95 96 Oxygen Delivery Method Room Air Room Air BMI result Body Mass Index 36.0 Const Other: The patient was awake and alert and looked extremely uncomfortable. HENMT Other: Face was symmetrical. Mucous membranes moist. Eyes General: appearance normal, both eyes and all related structures Conjunctivae: conjunctivae normal Neck Neck: Yes normal visual inspection and Yes full ROM Resp Effort & Inspection: normal respiratory effort Auscultation: clear to auscultation bilaterally Cardio Rate: regular rate Rhythm: regular rhythm Heart sounds: S1 normal heart sound present and S2 normal heart sound present GI Other: Abdomen is soft and nontender. Back/Spine/Pelvis Other: There is right-sided CVA percussion tenderness. Skin Other: Skin is pale and dry. Neuro Other: The patient was awake and alert. She seems extremely uncomfortable but had a normal mental status. Cranial nerves are grossly intact. She moves her extremities normally and appropriately. Extrem Other: No peripheral edema Medications Administered Discontinued Medications Generic Name Dose Route Start Last Admin Trade Name Freq PRN Reason Stop Dose Admin Droperidol 1.25 mg 02/21/24 00:56 02/21/24 01:22 Droperidol 5 Mg/2 Ml Vial IVPUSH 02/21/24 00:57 1.25 mg ONCE ONE Administration Sodium Chloride 1,000 mls @ 999 mls/hr 02/21/24 01:00 02/21/24 03:05 Ns IV 02/21/24 02:00 Infused .Q1H1M JERRY Infusion Sodium Chloride 1,000 mls @ 999 mls/hr 02/21/24 04:00 02/21/24 05:39 Ns IV 02/21/24 05:00 Infused .Q1H1M JERRY Infusion Ibuprofen 400 mg 02/21/24 06:42 02/21/24 07:07 Ibuprofen 400 Mg Tablet PO 02/21/24 06:43 400 mg ONCE ONE Administration Ketorolac Tromethamine 10 mg 02/21/24 00:56 02/21/24 01:22 Ketorolac Tromethamine 15 Mg/Ml Vial IVPUSH 02/21/24 00:57 10 mg ONCE ONE Administration Morphine Sulfate 4 mg 02/21/24 00:56 02/21/24 01:21 Morphine Sulfate 4 Mg/Ml Cartridge IVPUSH 02/21/24 00:57 4 mg ONCE ONE Administration Protocol Morphine Sulfate 4 mg 02/21/24 06:00 02/21/24 06:26 Morphine Sulfate 4 Mg/Ml Cartridge IVPUSH 02/21/24 06:01 4 mg ONCE ONE Administration Protocol Ondansetron HCl 4 mg 02/21/24 06:42 02/21/24 07:07 Ondansetron Odt 4 Mg Tab.Rapdis TRANSLINGU 02/21/24 06:43 4 mg ONCE ONE Administration Oxycodone HCl 5 mg 02/21/24 06:42 02/21/24 07:07 Oxycodone Hcl Immed Release 5 Mg Tablet PO 02/21/24 06:43 5 mg ONCE ONE Administration Tamsulosin HCl 0.4 mg 02/21/24 03:59 02/21/24 04:10 Tamsulosin Hcl 0.4 Mg Capsule PO 02/21/24 04:00 0.4 mg ONCE ONE Administration Medical Decision Making Medical Decision Making [facility] Narrative: the patient presents with obvious extreme discomfort related to right flank pain which seems highly suspicious for right ureteral colic. A noncontrast CT scan of the abdomen and pelvis shows a right sided proximal ureteral 8 mm stone with signs of obstruction. Her urinalysis shows no significant sign of infection. the patient was treated symptomatically with ketorolac, morphine, and repaired all as well as IV fluids. She was also given oral tamsulosin. She had significant relief of discomfort with this treatment. She was observed for several hours. Her severe discomfort did not seem to recur. I spoke to the patient about being hospitalized for this stone given that it is 8 mm in size and in the proximal ureter. The patient consider this option for some time. Ultimately she decided she would prefer initial attempts at management as an outpatient with pain medications. She will therefore be prescribed oxycodone, ibuprofen, ondansetron, and tamsulosin. She should stay in touch with her regular urologist, Dr. Aquino. If he is worse she should return to the emergency room here or to [facility] or [facility] where Dr. Aquino has privileges. Lab Data 02/21/24 01:39 02/21/24 01:39 Labs: Lab Results 02/21/24 02/21/24 Range/Units 01:39 05:35 WBC 14.0 H (4.8-10.8) X10*3/uL RBC 4.17 L (4.20-5.50) X10*6/uL Hgb 12.4 (12.0-16.0) g/dl Hct 35.8 L (37.0-47.0) % MCV 85.9 (80.0-98.0) fL MCH 29.7 (27.0-33.0) pg MCHC 34.6 (31.0-35.0) g/dl RDW 13.9 (11.0-16.0) % Plt Count 203 D (160-400) X10*3/uL MPV 9.5 (9.4-12.3) fL Immature Gran % (Auto) 0.6 H (0.0-0.4) % Neut % (Auto) 82.6 H (45-73) % Lymph % (Auto) 12.7 L (20-40) % [place] % (Auto) 3.6 (2-11) % Eos % (Auto) 0.2 (0-4) % Baso % (Auto) 0.3 (0-2) % Lymph # (Auto) 1.8 (1.2-4.9) X10*3/uL [place] # (Auto) 0.5 (0.1-1.2) X10*3/uL Eos # (Auto) 0.0 (0.0-0.4) X10*3/uL Baso # (Auto) 0.0 (0.0-0.2) X10*3/uL Abs Immat Gran (auto) 0.09 H (0.00-0.03) X10*3/uL Absolute Neuts (auto) 11.6 H (2.0-8.3) x10*3/uL Absolute Nucleated RBC 0.000 (0.0-0.012) X10*3/uL Nucleated RBC % (auto) 0.0 (0.0-0.2) /100WBC Sodium 139 (135-145) mmol/L Potassium 3.7 (3.3-5.1) mmol/L Chloride 104 (96-108) mmol/L Carbon Dioxide 22 (22-29) mmol/L Anion Gap 17 (12-20) BUN 12 (9-16) mg/dL Creatinine 0.96 (0.5-1.4) mg/dL Estim Creat Clear Calc 95.8 Estimated GFR > 60 Random Glucose 113 (60-115) mg/dL Calcium 9.1 D (8.4-10.2) mg/dL Total Bilirubin 0.2 (0.0-1.0) mg/dL AST 15 (5-31) U/L ALT 11 (0-31) U/L Alkaline Phosphatase 80 (39-117) U/L Total Protein 6.8 (6.5-8.0) g/dL Albumin 3.7 (3.5-5.0) g/dL Beta HCG, Quant < 2 mIU/mL Urine Color Yellow Urine Appearance Cloudy Urine pH 7.5 (5.0-9.0) Ur Specific [place] 1.010 (1.005-1.025) Urine Protein Negative (Neg-Trace) mg/dL Urine Glucose (UA) Negative (Negative) mg/dL Urine Ketones Negative (Negative) mg/dL Urine Blood Trace H (Negative) Urine Nitrite Negative (Negative) Ur Leukocyte Esterase Trace H (Negative) Urine RBC 6-10 H (0-2) /HPF Urine WBC 0-5 (0-5) /HPF Ur Squamous Epith Cells 3-5 (0-2) /HPF Urine Bacteria None Seen (None Seen) Hyaline Casts 0-2 (0-2) /LPF Discharge Plan Discharge Clinical Impression: Ureteral colic, Calculus of proximal right ureter Patient Disposition: Home, Self-Care Instructions: Ureteral Stones (ED) Additional Instructions: You have an 8 mm kidney stone in the upper part of your right ureter. This part of the ureter is called the proximal ureter. I have sent medications to your pharmacy to help manage your symptoms. You may take 2 extra-strength acetaminophen (Tylenol) up to 3 times a day as needed for pain. In addition you may take ibuprofen hours as needed. If necessary you may also use the oxycodone prescribed. For nausea you may use the ondansetron prescribed. Additionally please take a dose of tamsulosin at bedtime. Drink lot of fluids. Please contact your regular urologist and explained that you were found to have an 8 mm proximal ureteral stone and arrange follow up with your regular urologist. If you feel significantly worse and cannot manage your symptoms at home you should either return to the emergency room here, or, if you wish to work with your regular urologists, present to [facility] or [facility]. Prescriptions: New oxycodone 5 mg tablet 5 mg PO Q6H PRN (Reason: pain) Qty: 16 0RF Rx Instructions: Partial Fill upon patient request. ibuprofen 600 mg tablet 600 mg PO Q6H PRN (Reason: pain) Qty: 14 0RF ondansetron 4 mg tablet,disintegrating 4 mg PO Q6H PRN (Reason: nausea and vomiting) Qty: 12 0RF tamsulosin 0.4 mg capsule 0.4 mg PO BEDTIME Qty: 7 0RF No Action citalopram 40 mg tablet 40 mg PO DAILY cholecalciferol (vitamin D3) 50 mcg (2,000 unit) capsule 50 mcg PO DAILY potassium citrate 10 mEq (1,080 mg) tablet extended release 10 meq PO TID norgestimate-ethinyl estradiol [Run-Qc-Vkmfto] 0.18/0.215/0.25 mg-25 mcg tablet 1 tab PO DAILY Referrals: Jason Aquino MD [Physician] - (8mm right proximal ureteral stone) Interventions: ED Discharge Assessment Last Done: 02/21/24 07:13 Discharge Date/Time: 02/21/24 07:23 Print Language: Icelandic
[2024-02-21 01:21] VITALS: RESP 18
[2024-02-21] MEDS: Morphine Sulfate 4 MG/ML CARTRIDGE IVPUSH ×2 (01:21→06:26)
[2024-02-21] MEDS: 0.9 % Sodium Chloride 1,000 ML 999 ML IV ×2 (01:21→04:10)
[2024-02-21] MEDS: droPERidol 5 MG/2 ML VIAL 1.25 MG IVPUSH (01:22)
[2024-02-21] MEDS: Ketorolac Tromethamine 15 MG/ML VIAL 10 MG IVPUSH (01:22)
--- OUTSIDE RECORDS SUMMARY | 2024-02-21 01:37 | XMS_ITS | Continuity of Care Document ---
Author Organization [facility] Address [address] [place] [id number] Care Team Providers Care Range Feeder Name Role Phone Nyasia Cuenca MD Primary Care Physician Encounter [facility] [place] Date(s): 08/30/21 - 09/29/21 [facility] [address] [place] [id number] Allergies, Adverse Reactions, Alerts Substance Reaction Severity Status amoxicillin full body rash Active penicillin full body rash Active Medications CeleXA 40 mg oral tablet 40 mg, 1, tablet, By Mouth, Daily at bedtime, Refills 0, Maintenance, 10/16/20 12:19:00 EDT, Partial fill upon patient request if the prescription is for a schedule II opioid drug. Start Date: 10/16/20 Status: Ordered Claritin 10 mg oral tablet 10 mg, 1, tablet, By Mouth, Daily in AM, Refills 0, Maintenance, 10/16/20 12:20:00 EDT, Partial fill upon patient request if the prescription is for a schedule II opioid drug. Start Date: 10/16/20 Status: Ordered letrozole 2.5 mg oral tablet 2 tablets, By Mouth, Daily, Start taking on Day 3 of Cycle, # 10 tablet, 3 Refills, Maintenance, 02/26/21 17:11:00 EDT, [facility]/pharmacy #[id number], Partial fill upon patient request if the prescription is for a schedule II opioid drug., 170.18, cm, 02/26/21 1... Start Date: 02/26/21 Stop Date: 03/18/21 Status: Ordered Ovidrel 250 mcg/0.5 mL subcutaneous solution See Instructions, Take 2 Subcutaneous Injections Once per Cycle when directed, # 2 each, 3 Refills,Maintenance, 06/05/21 11:03:00 EST, Solution, [facility], Partial fill upon patient request if the prescription is for a schedule II opioid... Start Date: 06/05/21 Status: Ordered Multivitamins 1 tab, By Mouth, Daily at bedtime, 0 Refills, Maintenance, 10/16/20 12:20:00 EDT, Partial fill uponpatient request if the prescription is for a schedule II opioid drug. Start Date: 10/16/20 Status: Ordered Multivitamins with Folic Acid 1 mg oral tablet 1, By Mouth, Daily, # 100 tablet, 5 Refills, Maintenance, 06/05/21 11:02:00 EST, [facility]/pharmacy #[id number], Partial fill upon patient request if the prescription is for a schedule II opioid drug., 1 By Mouth Daily, 170.18, cm, 02/26/21 16:51:00 EDT, Height,... Start Date: 06/05/21 Status: Ordered Vitamin D3 oral tablet = 10 mcg, By Mouth, Daily at bedtime, 0 Refills, Maintenance, 10/16/20 12:20:00 EDT, Partial fill upon patient request if the prescription is for a schedule II opioid drug. Start Date: 10/16/20 Status: Ordered Social History Social History Type Response Smoking Status Never entered on: 10/16/20 Sex
--- OUTSIDE RECORDS SUMMARY | 2024-02-21 01:37 | XMS_ITS | Continuity of Care Document ---
Author Organization [facility] Medicine Address Unknown Care Team Providers Care Bilingual Nanny Name Role Phone Marisela Macias DO Primary Care Sumeet kirk [place] [facility] [place] [facility] [place] [id number] Date(s): 05/17/21 - 05/24/21 [facility] Reproductive Medicine Attending Physician: Caren Schultz MD Referring Physician: Marisela Macias DO Allergies, Adverse Reactions, Alerts Substance Reaction Severity [...] tablet, 3 Refills, Maintenance, 02/26/21 17:11:00 EDT, [facility]/pharmacy #[id number], Partial fill upon patient request if the prescription is for a schedule II opioid drug., 170.18, cm, 02/26/21 1... Start Date: 02/26/21 Stop Date: 03/18/21 Status: Ordered Ovidrel 250 mcg/0.5 mL subcutaneous solution See Instructions, Take 2 Subcutaneous Injections Once per Cycle when directed, # 2 each, 3 Refills,Maintenance, 04/09/21 15:04:00 EDT, Solution, [facility], Partial fill upon patient request if the prescription is for a schedule II... Start Date: 04/09/21 Status: Ordered Multivitamins 1 tab, By Mouth, Daily at bedtime, 0 Refills, Maintenance, 10/16/20 12:20:00 EDT, Partial fill uponpatient request if the prescription is for a schedule II opioid drug. Start Date: 10/16/20 Status: Ordered Multivitamins with Folic Acid 1 mg oral tablet 1, By Mouth, Daily, # 100 tablet, 5 Refills, Maintenance, 05/01/21 10:19:00 EST, [facility]/pharmacy #[id number], Partial fill upon patient request if the prescription is for a schedule II opioid drug., 1 By Mouth Daily, 170.18, cm, 02/26/21 16:51:00 EDT, Height,... Start Date: 05/01/21 Status: Ordered Vitamin D3 oral tablet = 10 mcg, By Mouth, Daily at bedtime, 0 Refills, Maintenance, 10/16/20 12:20:00 EDT, Partial fill upon patient request if the prescription is for a schedule II opioid drug. Start Date: 10/16/20 Status: Ordered Social History Social History Type Response Smoking Status Never entered on: 10/16/20 Sex
--- OUTSIDE RECORDS SUMMARY | 2024-02-21 01:37 | XMS_ITS | Continuity of Care Document ---
Author Organization [facility] e Medicine Address Unknown Care Team Providers Care Automobile Brakes Bonder Name Role Phone Marion Loya DO Marisela Primary Care Sumeet kirk [place] [facility] [place] 09[place]/21 [facility] Reproductive Medicine Attending Physician: Christie Mtz MD Allergies, Adverse Reactions, Alerts Substance Reaction Severity [...] tablet, 3 Refills, Maintenance, 02/26/21 17:11:00 EDT, [facility]/pharmacy #[id number], Partial fill upon patient request [...] tablet, 5 Refills, Maintenance, 06/05/21 11:02:00 EST, [facility]/pharmacy #[id number], Partial fill upon patient request [...]
--- OUTSIDE RECORDS SUMMARY | 2024-02-21 01:37 | XMS_ITS | Continuity of Care Document ---
Author Organization [facility] e Medicine Address [address] [place] [address]- Care Team Providers Care Cigar Binder Name Role Phone Khriselza Vincenzo HUBBARD Marisela Primary Care Sumeet kirk [id number] Date(s[facility] 12/08/20 - 01/07/21 [facility] Reproductive Medicine [address], [address] [place] [address]- Allergies, Adverse Reactions, Alerts Substance Reaction Severity Status amoxicillin Active penicillin Active Medications Apri 0.15 mg-0.03 mg oral tablet See Instructions, TAKE 1 TABLET BY MOUTH ON DAY 1 OF PERIOD FOR 21 DAYS AND SKIP PL[address]BOS, # 56 tablet, 1 Refills, Maintenance, [facility] [id number], 42, TAKE 1 TABLET BY MOUTH ON DAY 1 OF PERIOD FOR 21 DAYS AND SKIP PLACEBOS, 170.18, cm, 12/15/20 14:47:00... Start Date: 12/29/20 Status: Ordered CeleXA 40 mg oral tablet 40 mg, 1, tablet, By Mouth, Daily, Refills 0, Maintenance, 10/16/20 12:19:00 EDT, Partial fill uponpatient request if the prescription is for a schedule II opioid drug. Start Date: 10/16/20 Status: Ordered Claritin 10 mg oral tablet 10 mg, 1, tablet, By Mouth, Daily, Refills 0, Maintenance, 10/16/20 12:20:00 EDT, Partial fill uponpatient request if the prescription is for a schedule II opioid drug. Start Date: 10/16/20 Status: Ordered Multivitamins By Mouth, Daily, 0 Refills, Maintenance, 10/16/20 12:20:00 EDT, Partial fill upon patient request if the prescription is for a schedule II opioid drug. Start Date: 10/16/20 Status: Ordered Vitamin D3 oral tablet = 10 mcg, By Mouth, Daily, 0 Refills, Maintenance, 10/16/20 12:20:00 EDT, Partial fill upon patientrequest if the prescription is for a schedule II opioid drug. Start Date: 10/16/20 Status: Ordered Social History Social History Type Response Smoking Status Never entered on: 10/16/20 Sex
--- OUTSIDE RECORDS SUMMARY | 2024-02-21 01:37 | XMS_ITS | Continuity of Care Document ---
Author Organization [facility] e Medicine Address Unknown Care Team Providers Care Parcel Post Truck Driver Name Role Phone Marion Marisela Loya DO Primary Care Sumeet kirk Encounter [facility] [place] Date(s): 08/20/21 - 09/19/21 [facility] Reproductive Medicine Allergies, Adverse Reactions, Alerts Substance Reaction Severity [...] tablet, 3 Refills, Maintenance, 02/26/21 17:11:00 EDT, [facility]/pharmacy #[id number], Partial fill upon patient request if [...] tablet, 5 Refills, Maintenance, 06/05/21 11:02:00 EST, [facility]/pharmacy #[id number], Partial fill upon patient request if [...]
--- OUTSIDE RECORDS SUMMARY | 2024-02-21 01:37 | XMS_ITS | Continuity of Care Document ---
Author Organization [facility] e Medicine Address Unknown Care Team Providers Care Mail Examiner Name Role Phone Marisela Macias DO Primary Care Sumeet kirk [place] [facility] [place](s): 01/29/21 - 02/05/21 [facility] Reproductive Medicine Attending Physician: Julissa Carey MD Referring Physician: Marisela Macias DO Allergies, Adverse Reactions, Alerts Substance Reaction Severity Status amoxicillin full body rash Active penicillin full body rash Active Medications Apri 0.15 mg-0.03 mg oral tablet See Instructions, TAKE 1 TABLET BY MOUTH ON DAY 1 OF PERIOD FOR 21 DAYS AND SKIP PLACEBOS, # 56 tablet, 1 Refills, Maintenance, [facility] [id number], 42, TAKE 1 TABLET BY MOUTH ON [...] drug. Start Date: 10/16/20 Status: Ordered Multivitamins 1 tab, By Mouth, [...] opioid drug. Start Date: 10/16/20 Status: Ordered Vital Signs Most recent to oldest [Reference Range]: 1 Height 170.18 cm (01/29/21 3:54 PM) Weight 101.3 kg (01/29/21 3:54 PM) Pulse Rate [55-90 bpm] 101 bpm *H* (01/29/21 3:54 PM) Body Mass Index [18.5-24.99] 34.98 *>HHI* (01/29/21 3:54 PM) Blood Pressure [90-138/55-84 mm Hg] 125/ 73mm Hg (01/29/21 3:54 PM) Blood pressure sites Arm, right (01/29/21 3:54 PM) Social History Social History Type Response Smoking Status Never entered on: 10/16/20 Sex
--- OUTSIDE RECORDS SUMMARY | 2024-02-21 01:37 | XMS_ITS | Continuity of Care Document ---
Author Organization [facility] Address [address] [facility] [address] [place] [address] [place] [address]- Care Team Providers Care Ironworker Machine Operator Name Role Phone Nyasia Cuenca MD Primary Care Physician Encounter 05/26/23 - 06/02/23 [facility] [address], [address] [place] [address]- Attending Physician: Tyler Edwards MD Admitting Physician: Tyler Edwards MD Referring Physician: Tyler Edwards MD Allergies, Adverse Reactions, Alerts Substance Reaction Severity Status amoxicillin full body rash Active penicillin full body rash Active Medications acetaminophen 325 mg oral tablet 650 mg, By Mouth, Every 4 hours, (1-3), may give 325mg per patient preference and re-dose with 325mg within 4 hours, if needed. Patient should only receive a total of 650mg of Acetaminophen every 4 hours., # 90 tablet, Refills 0, Tot. Refills 0, Charo... Start Date: 03/21/22 Status: Ordered CeleXA 40 mg oral tablet [...] opioid drug. Start Date: 10/16/20 Status: Ordered docusate sodium 100 mg oral capsule 1 capsule = 100 mg, By Mouth, 2 times a day, # 60 capsule, 0 Refills, Maintenance, 03/21/22 6:41:00EDT, Capsule, [id number], Partial fill upon patient request if the prescription is for a schedule II opioid drug., 170, cm, 03/21/22 4:06:00 ED... Start Date: 03/21/22 Status: Ordered Ferrous Sulfate ER Refills 0, Maintenance, 03/08/22 8:30:00 EDT, Partial fill upon patient request if the prescriptionis for a schedule II opioid drug. Start Date: 03/08/22 Status: Ordered ibuprofen 800 mg oral tablet 800 mg, 1, tablet, By Mouth, Every 8 hours, (4-6), may give 400mg per patient preference and re-dose with 400mg within 8 hours, if needed. Patient should only receive a total of 800mg of Ibuprofen every 8 hours., # 90 tablet, Refills 0, Tot. Refills... Start Date: 03/21/22 Status: Ordered letrozole 2.5 mg oral tablet 2 tablets, By Mouth, Daily, Start taking on Day 3 of Cycle, # 10 tablet, 3 Refills, Maintenance, 02/26/21 17:11:00 EDT, [facility]/pharmacy #[id number], Partial fill upon patient request if [...] II opioid... Start Date: 06/05/21 Status: Ordered oxyCODONE 5 mg oral tablet 5 mg, 1, tablet, By Mouth, Every 3 hours, PRN, (7-10), # 10 tablet, Refills 0, Tot. Refills 0, Maintenance, Pain , Severe, 03/21/22 6:41:00 EDT, Route to Pharmacy Electronically, [facility]/pharmacy #[id number], Partial fill upon patient request if the prescriptio... Start Date: 03/21/22 Status: Ordered Multivitamins 1 tab, By Mouth, Daily at bedtime, 0 Refills, Maintenance, 10/16/20 12:20:00 EDT, Partial fill uponpatient request if the prescription is for a schedule II opioid drug. Start Date: 10/16/20 Status: Ordered Multivitamins with Folic Acid 1 mg oral tablet 1, By Mouth, Daily, # 100 tablet, 5 Refills, Maintenance, 06/05/21 11:02:00 EST, [facility]/pharmacy #[id number], Partial fill upon patient request if the prescription is for a schedule II opioid drug., 1 By Mouth Daily, 170.18, cm, 02/26/21 16:51:00 EDT, Height,... Start Date: 06/05/21 Status: Ordered simethicone 80 mg oral tablet, chewable 80 mg, Chew, 3 times a day, PRN, # 20 tablet, Refills 0, Tot. Refills 0, Maintenance, Gas, 226:41:00 EDT, Route to Pharmacy Electronically, [facility]/pharmacy #[id number], Partial fill upon patient request if the prescription is for a schedule II opioid drSneha. Start Date: 03/21/22 Status: Ordered Vitamin D3 oral tablet = 10 mcg, By Mouth, Daily at bedtime, 0 Refills, Maintenance, 10/16/20 12:20:00 EDT, Partial fill upon patient request if the prescription is for a schedule II opioid drug. Start Date: 10/16/20 Status: Ordered Problem List Condition Confirmation Course Effective Dates Status Health St atus Informant Anemia Confirmed Active Anxiety Confirmed Active Depression Confirmed Active Renal calculi Confirmed Active Obese class II Confirmed Active Results Radiology Reports * Exam Date Time Procedure Performing Provider Status 05/26/23 9:38 AM MM Digital Mammo Screening Kaelyn Hwang; Auth (Verified) Notes: (MM Digital Mammo Screening) Reason For Exam: Z12.31 SCREEN MM RESULT: MM Digital Mammo Screening PROCEDURE: MM Digital Mammo Screening INDICATION: Screening. No known abnormalities. Baseline screening COMPARISON: None TECHNIQUE: Full-field digital CC and MLO views of both breasts were obtained. Computer-aided detection (CAD) was utilized in the interpretation of this study. Bilateral tomosynthesis views were obtained. DENSITY: The breast tissue contains scattered areas of fibroglandular density. FINDINGS: No suspicious finding in the left breast. In the right mid depth central breast there is a focal subcentimeter round asymmetry image 19/75 ofthe cc view and image 39/88 of the MLO view. Would recommend cc spot compression krista, true lateraltomo and possible ultrasound. IMPRESSION: Recommend additional imaging of the right breast. RECOMMENDATION: Diagnostic 3D tomosynthesis of the right breast with scheduled ultrasound BI-RADS: 0 (Incomplete - Need Additional Imaging Evaluation. Lay letter mailed to patient WSN: [id number] Ordering Physician: Tyler Edwards Dictated By: Ana Guerra MD Dictated Date/Time: 05/26/23 10:33 am Reviewed By: Ana Guerra MD Signed By: Ana Guerra MD Signed Date/Time: 05/26/23 10:33 am Transcribed By: JAKE Extension Service Agent Date/Time: 05/26/23 10:28 am Birads: Social History Social History Type Response Smoking Status Never entered on: 10/16/20 Sex Patient Care team information Care Team Personnel Name: Nyasia Cuenca MD Position: [facility] Physician - Primary Care Member Role: PCP Address: Address: [address] [place] [address]- Name: Tyler Edwards MD Position: [facility] IT SALES CONSULTANT Member Role: [employer] IT SALES CONSULTANT Physician Address: Address: [address] [place] [address] [facility], [place] [address]- Care Team Related Persons Name: CLEMENTE ACEVEDO Address: home [address] [place], [place] Name: SYLVIE BOB Address: [employer] Address: home [address] [place] [address] [place] Name: FABIOLA BOB Address: home [address], [place] Name: CLEMENTE PETER Address: home [address] [place] [address]
--- OUTSIDE RECORDS SUMMARY | 2024-02-21 01:37 | XMS_ITS | Continuity of Care Document ---
Author Organization [facility] Address [address] [facility], 4t [address] [place] [address]- Care Team Providers Care Insulation Sprayer Name Role Phone Khriselza Vincenzo HUBBARD Marisela Primary Care Sumeet kirk [id number] Date[facility] 12/08/20 - 01/07/21 [facility] Reproductive Medicine [address], 4th [address] [place] [address]- Allergies, Adverse Reactions, Alerts Substance Reaction Severity Status amoxicillin Active penicillin Active Medications Apri 0.15 mg-0.03 mg oral tablet See Instructions, TAKE 1 TABLET BY MOUTH ON DAY 1 OF PERIOD FOR 21 DAYS AND SKIP PLACEBOS, # 56 tablet, 1 Refills, Maintenance, [facility] [id number], 42, TAKE 1 TABLET BY MOUTH ON [...]
--- OUTSIDE RECORDS SUMMARY | 2024-02-21 01:37 | XMS_ITS | Continuity of Care Document ---
Author Organization [facility] Address Unknown Care Team Providers Care Thermograph Operator Name Role Phone Marisela Macias DO Primary Care Sumeet kirk [place] [facility] [place](s[place] 02/26/21 - 03/05/21 [facility] Reproductive Medicine Attending Physician: Julissa Carey [...] tablet, 3 Refills, Maintenance, 02/26/21 17:11:00 EDT, [facility]/pharmacy #[id number], Partial fill upon patient request if the prescription is for a schedule II opioid drug., 170.18, cm, 02/26/21 1... Start Date: 02/26/21 Stop Date: 03/18/21 Status: Ordered Ovidrel 250 mcg/0.5 mL subcutaneous solution See Instructions, Take 2 Subcutaneous Injections Once per Cycle when directed, # 2 each, 3 Refills,Maintenance, 02/26/21 17:16:00 EDT, Solution, [facility], Partial fill upon patient request if the prescription is for a schedule II opioid... Start Date: 02/26/21 Status: Ordered Multivitamins 1 tab, By Mouth, [...] oldest [Reference Range]: 1 Height 170.18 cm (02/26/21 4:45 PM) Weight 101.6 kg (02/26/21 4:45 PM) Pulse Rate [55-90 bpm] 93 bpm *H* (02/26/21 4:45 PM) Body Mass Index [18.5-24.99] 35.08 *>HHI* (02/26/21 4:45 PM) Blood Pressure [90-138/55-84 mm Hg] 120/ 69mm Hg (02/26/21 4:45 PM) Blood pressure sites Arm, right (02/26/21 4:45 PM) Weight Obtained Via Standing scale (02/26/21 4:45 PM) Social History Social History Type Response Smoking Status Never entered on: 10/16/20 Sex
--- OUTSIDE RECORDS SUMMARY | 2024-02-21 01:37 | XMS_ITS | Continuity of Care Document ---
Author Organization [facility] e Medicine Address Unknown Care Team Providers Care Desk Editor Name Role Phone Marisela Macias DO Primary Care Sumeet kirk [place] [facility] [id number] Date(s): 07/13/21 - 07/20/21 [facility] Reproductive Medicine Attending Physician: Not on Staff, Attending MD Referring Physician: Christie Mtz MD Allergies, Adverse Reactions, [...] tablet, 3 Refills, Maintenance, 02/26/21 17:11:00 EDT, [facility]/pharmacy #[id number], Partial fill upon patient request if the [...] tablet, 5 Refills, Maintenance, 06/05/21 11:02:00 EST, [id number], Partial fill upon patient request [...]
--- OUTSIDE RECORDS SUMMARY | 2024-02-21 01:37 | XMS_ITS | Continuity of Care Document ---
Author Organization [facility] Address [address] [place] [address]- Care Team Providers Care Hotel Director Name Role Phone Marisela Macias DO Primary Care Sumeet kirk Encounter [facility] [place] Date(s): 11/15/21 - 12/15/21 [facility] [address] [place] [address] Allergies, Adverse Reactions, Alerts Substance [...] tablet, 3 Refills, Maintenance, 02/26/21 17:11:00 EDT, [facility]/pharmacy #[id number], Partial fill upon patient request [...]
--- OUTSIDE RECORDS SUMMARY | 2024-02-21 01:37 | XMS_ITS | Continuity of Care Document ---
Author Organization [facility] Medicine Address [address], 4t [address] [place] [address] [place] [address]- Care Team Providers Care Chief Of Party Name Role Phone Marisela Macias DO Primary Care Sumeet kirk [id number]12[facility] - 12/19/20 [facility] Rep[facility]ductive Medicine [address], 4th [place] [address] [place] [address]- Attending Physician: Christie Mtz MD Referring Physician: Julissa Carey MD Allergies, Adverse Reactions, Alerts Substance Reaction Severity Status amoxicillin Active penicillin Active Medications Apri 0.15 mg-0.03 mg oral tablet 1 tablet, By Mouth, Daily, 1 active tablet daily on day 1 of period, take 21 days of active tablets,skip placebos start the next pack, # 2 pack/packet, 1 Refills, Maintenance, 11/21/20 15:08:00 EDT,[facility]/pharmacy #[id number], Partial fill upon patient requ... Start Date: 11/21/20 Status: Ordered CeleXA 40 mg oral tablet [...] oldest [Reference Range]: 1 Height 170.18 cm (12/12/20 5:03 PM) Weight 100.6 kg (12/12/20 5:03 PM) Pulse Rate [55-90 bpm] 86 bpm (12/12/20 5:03 PM) Body Mass Index [18.5-24.99] 34.74 *>HHI* (12/12/20 5:03 PM) Blood Pressure [90-138/55-84 mm Hg] 120/ 67mm Hg (12/12/20 5:03 PM) Blood pressure sites Arm, left (12/12/20 5:03 PM) Weight Obtained Via Standing scale (12/12/20 5:03 PM) Social History Social History Type Response Smoking Status Never entered on: 10/16/20 Sex
--- OUTSIDE RECORDS SUMMARY | 2024-02-21 01:37 | XMS_ITS | Continuity of Care Document ---
Author Organization [facility] ter Address [address] [place] [address]- Care Team Providers Care Intermediate Teacher Name Role Phone Marion Taylorsheryl Marisela HUBBARD Primary Care Sumeet kirk [place] [facility] [place] 01/30/22 - 01/30/[address] [address]- Discharge Disposition: A-D/C Home Attending Physician: Tyler Edwards MD Admitting Physician: [...] tablet, 3 Refills, Maintenance, 02/26/21 17:11:00 EDT, [facility]/pharmacy #[id number], Partial fill upon patient request if the [...]
--- OUTSIDE RECORDS SUMMARY | 2024-02-21 01:37 | XMS_ITS | Continuity of Care Document ---
Author Organization [facility] e Medicine Address [address], 4t [address] [place] [address]- Care Team Providers Care Pay Clerk Name Role Phone Marion Vincenzo HUBBARD Marisela Primary Care Sumeet kirk [place] [facility] Date(s): 11/15/20 - 12/15/20 [facility] Reproductive Medicine [address], 4th [address] [place], [place] [address] Allergies, Adverse Reactions, Alerts Substance Reaction Severity Status amoxicillin Active penicillin Active Medications Apri 0.15 mg-0.03 mg oral tablet 1 tablet, By Mouth, Daily, 1 active tablet daily on day 1 of period, take 21 days of active tablets,skip placebos start the next pack, # 2 pack/packet, 1 Refills, Maintenance, 11/21/20 15:08:00 EDT,[facility]/pharmacy #[id number], Partial fill upon patient requ... Start Date: [...]
--- OUTSIDE RECORDS SUMMARY | 2024-02-21 01:37 | XMS_ITS | Continuity of Care Document ---
Author Organization [facility] Medicine Address Unknown Care Team Providers Care Director Case Management Name Role Phone Marion Marisela Loya DO Primary Care Sumeet kirk Encounter [facility] Date(s): 05/01/21 - 05/31/21 [facility] Reproductive Medicine Allergies, Adverse Reactions, Alerts Substance [...] tablet, 3 Refills, Maintenance, 02/26/21 17:11:00 EDT, [facility]/pharmacy #[id number], Partial fill upon patient request if the [...] tablet, 5 Refills, Maintenance, 05/01/21 10:19:00 EST, [facility]/pharmacy #[id number], Partial fill upon patient request [...]
--- OUTSIDE RECORDS SUMMARY | 2024-02-21 01:37 | XMS_ITS | Continuity of Care Document ---
Author Organization [facility] Medicine Address [address], 4t [address] [place] [address]- Care Team Providers Care Field Service Rep Name Role Phone Marion TaylortitoMarisela karimi DO Primary Care Sumeet kirk [place] [facility] [place] 11[place]13/20 [facility] Reproductive Medicine [address], 4th [address] [place] [address] Attending Physician: Julissa Carey MD Allergies, Adverse Reactions, Alerts Substance Reaction Severity Status amoxicillin Active penicillin Active Medications CeleXA 40 mg oral tablet [...] opioid drug. Start Date: 10/16/20 Status: Ordered doxycycline monohydrate 100 mg oral tablet 1 tablet = 100 mg, By Mouth, 2 times a day, # 28 tablet, 0 Refills, Maintenance, 11/10/20 17:41:00 EDT, Tablet, [facility]/pharmacy #[id number], Partial fill upon patient request if the prescription is for a schedule II opioid drug., 170.18, cm, 11/06/20 16:54:00... Start Date: 11/10/20 Stop Date: 11/24/20 Status: Ordered Multivitamins By Mouth, Daily, 0 Refills, Maintenance, 10/16/20 12:20:00 EDT, Partial fill upon patient request if the prescription is for a schedule II opioid drug. Start Date: 10/16/20 Status: Ordered Valium 5 mg oral tablet See Instructions, Take 1 tablet by mouth 1 hour prior to procedure. May repeat., # 2 tablet, Refills 0, Tot. Refills 0, Maintenance, 10/31/20 9:21:00 EDT, Instructions Replace Required Details, [facility], [facility]/pharmacy #[id number], [place]... Start Date: 10/31/20 Status: Ordered Vitamin D3 oral tablet = 10 mcg, By Mouth, Daily, 0 Refills, Maintenance, 10/16/20 12:20:00 EDT, Partial fill upon patientrequest if the prescription is for a schedule II opioid drug. Start Date: 10/16/20 Status: Ordered Vital Signs Most recent to oldest [Reference Range]: 1 Height 170.18 cm (11/06/20 4:51 PM) Weight 100.5 kg (11/06/20 4:51 PM) Pulse Rate [55-90 bpm] 96 bpm *H* (11/06/20 4:51 PM) Body Mass Index [18.5-24.99] 34.7 *>HHI* (11/06/20 4:51 PM) Blood Pressure [90-138/55-84 mm Hg] 133/ 64mm Hg (11/06/20 4:51 PM) Blood pressure sites Arm, right (11/06/20 4:51 PM) Weight Obtained Via Standing scale (11/06/20 4:51 PM) Social History Social History Type Response Smoking Status Never entered on: 10/16/20 Sex
--- OUTSIDE RECORDS SUMMARY | 2024-02-21 01:37 | XMS_ITS | Continuity of Care Document ---
Author Organization [facility] e Medicine Address Unknown Care Team Providers Care Delinquent Tax Collector Name Role Phone Marisela Macias DO Primary Care Sumeet kikr Encounter [facility] Date(s): 06/17/21 - 06/24/21 [facility] Reproductive Medicine Attending Physician: Not on [...] tablet, 3 Refills, Maintenance, 02/26/21 17:11:00 EDT, [facility]/pharmacy #[id number], Partial fill upon patient request if the [...]
--- OUTSIDE RECORDS SUMMARY | 2024-02-21 01:37 | XMS_ITS | Continuity of Care Document ---
Author Organization [facility] e Medicine Address [address] [facility], 4t [address] [place] [address]- Care Team Providers Care Loom Inspector Name Role Phone KhrispierceMarisela Barron DO Primary Care Sumeet kirk [place] [facility] [place] 11[place]29/20 [facility] Reproductive Medicine [address], 4th [address] [place], [place] [address] Allergies, Adverse Reactions, Alerts Substance Reaction Severity Status amoxicillin Active penicillin Active Medications Apri 0.15 mg-0.03 mg oral tablet 1 tablet, By Mouth, Daily, 1 active tablet daily on day 1 of period, take 21 days of active tablets,skip placebos start the next pack, # 2 pack/packet, 1 Refills, Maintenance, 11/21/20 15:08:00 EDT,[facility]/pharmacy #[id number], Partial fill upon patient requ... Start Date: [...] opioid drug. Start Date: 10/16/20 Status: Ordered Diflucan 150 mg oral tablet 1 tablet = 150 mg, By Mouth, Once, MAY REPEAT IN 3 DAYS IF NO RELIEF, # 2 tablet, 0 Refills, Soft Stop, 11/17/20 13:32:00 EDT, Tablet, [facility]/pharmacy #[id number], Partial fill upon patient request if the prescription is for a schedule II opioid drug., 170.18,... Start Date: 11/17/20 Status: Ordered doxycycline monohydrate 100 mg oral tablet 1 tablet = 100 mg, By Mouth, 2 times a day, # 28 tablet, 0 Refills, Maintenance, 11/10/20 17:41:00 EDT, Tablet, [facility]/pharmacy #[id number], Partial fill upon patient [...] Instructions Replace Required Details, [facility], [facility]/pharmacy #[id number], Pa... Start Date: 10/31/20 Status: Ordered Vitamin D3 oral tablet = 10 mcg, By Mouth, Daily, 0 Refills, Maintenance, 10/16/20 12:20:00 EDT, Partial fill upon patientrequest if the prescription is for a schedule II opioid drug. Start Date: 10/16/20 Status: Ordered Social History Social History Type Response Smoking Status Never entered on: 10/16/20 Sex
--- OUTSIDE RECORDS SUMMARY | 2024-02-21 01:37 | XMS_ITS | Continuity of Care Document ---
Author Organization [facility] ter Address [address] [place] [address]- Care Team Providers Care Severity Of Illness Coordinator Name Role Phone Nyasia Cuenca MD Primary Care Physician [phone] Encounter [facility] [place] Date(s): 03/11/22 - 04/17/[address] [address] Attending Physician: Tyler Edwards MD Referring Physician: Tyler Edwards MD Allergies, Adverse Reactions, Alerts Substance Reaction Severity Status amoxicillin full body rash Active penicillin full body rash Active Immunizations Not Given Vaccine Date Status Refusal Reason influenza virus vaccine, inactivated 03/19/22 Not Given Parent Or Guardian Refuses Medications acetaminophen 325 mg oral tablet 650 [...] capsule, 0 Refills, Maintenance, 03/21/22 6:41:00EDT, Capsule, [facility]/pharmacy #[id number], Partial fill upon patient [...] tablet, 3 Refills, Maintenance, 02/26/21 17:11:00 EDT, [facility]/pharmacy #[id number], Partial fill upon patient [...] 03/21/22 6:41:00 EDT, Route to Pharmacy Electronically, [facility]/pharmacy #[id number], Partial fill upon patient [...] tablet, 5 Refills, Maintenance, 06/05/21 11:02:00 EST, [facility]/pharmacy #[id number], Partial fill upon patient request if the prescription is for a schedule II opioid drug., 1 By Mouth Daily, 170.18, cm, 02/26/21 16:51:00 EDT, Height,... Start Date: 06/05/21 Status: Ordered simethicone 80 mg oral tablet, chewable 80 mg, Chew, 3 times a day, PRN, # 20 tablet, Refills 0, Tot. Refills 0, Maintenance, Gas, 226:41:00 EDT, Route to Pharmacy Electronically, [facility]/pharmacy #[id number], Partial fill upon patient request if the prescription is for a schedule II opioid dr... Start Date: 03/21/22 Status: Ordered Vitamin D3 [...] Confirmed Active Obese class II Confirmed Active Social History Social History Type Response Smoking Status Never entered on: 10/16/20 Sex Patient Care team information Personnel Name: Nyasia Cuenca MD Address: Address: [address] [place] [id number]
--- OUTSIDE RECORDS SUMMARY | 2024-02-21 01:37 | XMS_ITS | Continuity of Care Document ---
Author Organization [facility] ter Address [address] [place] [address]- Care Team Providers Care Dielectric Embossing Machine Operator Name Role Phone Marion Taylorsheryl Marisela HUBBARD Primary Care Sumeet kirk Encounter [facility] [place] Date(s): 02/06/21 - 02/06/[address] [address]- Discharge Disposition: A-D/C Home Attending Physician: Julissa Carey MD Admitting Physician: Julissa Carey MD Referring Physician: Julissa Carey MD Allergies, Adverse Reactions, Alerts Substance Reaction Severity Status amoxicillin full body rash Active penicillin full body rash Active Medications Apri 0.15 mg-0.03 mg oral tablet See Instructions, TAKE 1 TABLET BY MOUTH ON DAY 1 OF PERIOD FOR 21 DAYS AND SKIP PLACEBOS, # 56 tablet, 1 Refills, Maintenance, [id number], 42, TAKE 1 TABLET BY MOUTH ON [...] opioid drug. Start Date: 10/16/20 Status: Ordered ibuprofen 600 mg oral tablet 600 mg, 1, tablet, By Mouth, 4 times a day, PRN, # 40 tablet, Refills 0, Tot. Refills 0, Maintenance, for pain, 02/06/21 7:35:00 EDT, Route to Pharmacy Electronically, [facility]/pharmacy #[id number], Partial fill upon patient request if the prescription is for a... Start Date: 02/06/21 Status: Ordered OxyCODONE IR Tablet 5 mg, Tablet, By Mouth, Every 4 hours, in PACU ONLY, if patient can tolerate PO, PRN for Pain , Mild, Routine, 02/06/21 8:34:00 EDT Start Date: 02/06/21 Stop Date: 02/06/21 Status: Discontinued Multivitamins 1 tab, By Mouth, Daily at [...] Most recent to oldest [Reference Range]: 1 2 3 Height 170.18 cm (02/06/21 6:30 AM) 170.18 cm (01/18/21 7:30 PM) Weight 100.6 kg (02/06/21 6:30 AM) 100 kg (01/18/21 7:30 PM) Oxygen Saturation [94-100 %] 96 % (02/06/21 9:15 AM) 95 % (02/06/21 9:00 AM) 100 % (02/06/21 8:45 AM) Pulse Rate [55-90 bpm] 82 bpm (02/06/21 6:30 AM) Body Mass Index [18.5-24.99] 34.74 *>HHI* (02/06/21 6:30 AM) 34.53 *>HHI* (01/18/21 7:30 PM) Blood Pressure [90-138/55-84 mm Hg] 143/81mm Hg *H* (02/06/21 9:15 AM) 135/90mm Hg (02/06/21 9:00 AM) 143/81mm Hg *H* (02/06/21 8:45 AM) Respiratory Rate [16-30 br/min] 20 br/min (02/06/21 9:15 AM) 20 br/min (02/06/21 9:14 AM) 18 br/min (02/06/21 8:45 AM) Temperature [96.8-100.4 DegF] 97.7 DegF (02/06/21 9:15 AM) 98.2 DegF (02/06/21 8:30 AM) 96.9 DegF (02/06/21 6:30 AM) Liters per Minute 5 L/min (02/06/21 8:30 AM) Mode of Delivery (Oxygen) Room air (02/06/21 9:00 AM) Simple face mask (02/06/21 8:30 AM) Room air (02/06/21 6:30 AM) Blood pressure sites Arm, right (02/06/21 6:30 AM) Temperature Route Temporal (02/06/21 9:15 AM) Temporal (02/06/21 8:30 AM) Temporal (02/06/21 6:30 AM) Dry Weight 100.6 kg (02/06/21 6:30 AM) 100 kg (01/18/21 7:30 PM) Weight Obtained Via Standing scale (02/06/21 6:30 AM) Patient/family stated (01/18/21 7:30 PM) Dry Weight Obtained Via Standing scale (02/06/21 6:30 AM) Patient/family stated (01/18/21 7:30 PM) Social History Social History Type Response Smoking Status Never entered on: 10/16/20 Sex
--- OUTSIDE RECORDS SUMMARY | 2024-02-21 01:37 | XMS_ITS | Continuity of Care Document ---
Author Organization [facility] e Medicine Address Unknown Care Team Providers Care Bus Inspector Name Role Phone Marion Marisela Loya DO Primary Care Sumeet kirk En[place] [facility] [place] Date(s): 07/03/21 - 08/02/21 [facility] Reproductive Medicine Allergies, Adverse Reactions, Alerts Substance [...] tablet, 3 Refills, Maintenance, 02/26/21 17:11:00 EDT, [facility]/pharmacy #[id number], Partial fill upon patient request [...] tablet, 5 Refills, Maintenance, 06/05/21 11:02:00 EST, [facility]/pharmacy #[id number], Partial fill upon patient request [...]
--- OUTSIDE RECORDS SUMMARY | 2024-02-21 01:37 | XMS_ITS | Continuity of Care Document ---
Author Organization [facility] ter Address [address] [place] [address]- Care Team Providers Care Cash Van Salesperson Name Role Phone Marion tobisheryl Marisela HUBBARD Primary Care Sumeet kirk [place] [facility] [place] Date(s[place] 03/08/22 - 03/08/[address] [address]- Discharge Disposition: A-D/C Home Attending Physician: Tyler [...] opioid drug. Start Date: 10/16/20 Status: Ordered Ferrous Sulfate ER Refills 0, Maintenance, 03/08/22 8:30:00 EDT, Partial fill upon patient request if the prescriptionis for a schedule II opioid drug. Start Date: 03/08/22 Status: Ordered letrozole 2.5 mg oral tablet 2 tablets, By Mouth, Daily, Start taking on Day 3 of Cycle, # 10 tablet, 3 Refills, Maintenance, 02/26/21 17:11:00 EDT, [facility]/pharmacy #[id number], Partial fill upon patient request [...] tablet, 5 Refills, Maintenance, 06/05/21 11:02:00 EST, [facility]/pharmacy #[id number], Partial fill upon patient request [...] Date: 10/16/20 Status: Ordered Problem List Condition Effective Dates Status Health Status Inform ant Severe obesity(Confirmed) Active Vital Signs Most recent to oldest [Reference Range]: 1 2 3 Height 167 cm (03/07/22 7:59 PM) Weight 112.5 kg (03/07/22 7:59 PM) Pulse Rate [55-90 bpm] 97 bpm *H* (03/07/22 7:59 PM) Body Mass Index [18.5-24.99 kg/m2] 40.34 kg/m2 *>HHI* (03/07/22 7:59 PM) Blood Pressure [90-138/55-84 mm Hg] 138/69mm Hg (03/08/22 11:46 AM) 139/80mm Hg *H* (03/08/22 7:58 AM) 131/74mm Hg (03/08/22 6:39 AM) Respiratory Rate [16-30 br/min] 20 br/min (03/07/22 7:59 PM) Temperature [96.8-100.4 DegF] 98.1 DegF (03/08/22 6:39 AM) 98.2 DegF (03/08/22 12:02 AM) 98.1 DegF (03/07/22 7:59 PM) Blood pressure sites Arm, left (03/08/22 12:02 AM) Arm, right (03/07/22 7:59 PM) Temperature Route Oral (03/08/22 6:39 AM) Oral (03/08/22 12:02 AM) Oral (03/07/22 7:59 PM) Dry Weight 112.5 kg (03/07/22 7:59 PM) Social History Social History Type Response Smoking Status Never entered on: 10/16/20 Sex Care Team Personnel Name: Marisela Macias DO Address: [address], [place] [address]
--- OUTSIDE RECORDS SUMMARY | 2024-02-21 01:37 | XMS_ITS | Continuity of Care Document ---
Author Organization [facility] Address [address] [place] [address]- Care Team Providers Care Ceramic Research Engineer Name Role Phone Marion TaylortitoMarisela karimi DO Primary Care Sumeet kirk [place] [facility] [place] Date(s): 11/19/21 - 12/19/21 [facility] [address] [place] [address] Attending Physician: Thiago Cerrato Admitting Physician: AdmtrThiago Referring Physician: Admtr, Ar8 Allergies, Adverse Reactions, Alerts Substance Reaction Severity [...] tablet, 3 Refills, Maintenance, 02/26/21 17:11:00 EDT, [facility]/pharmacy #[id number], Partial fill upon patient request if the [...] tablet, 5 Refills, Maintenance, 06/05/21 11:02:00 EST, [facility]/pharmacy #[id number], Partial fill upon patient [...]
--- OUTSIDE RECORDS SUMMARY | 2024-02-21 01:37 | XMS_ITS | Continuity of Care Document ---
Author Organization [facility] e Medicine Address [address], [address]t [address] [place] [address]- Care Team Providers Care Drywall Hanger Framer Name Role Phone Marion Vincenzo Marisela Primary Care Sumeet kirk [place] [facility] [place](s): 11/17/20 - 12/17/20 [facility] Reproductive Medicine [address], [address] [place] [address] Allergies, Adverse Reactions, Alerts Substance Reaction Severity Status amoxicillin Active penicillin Active Medications Apri 0.15 mg-0.03 mg oral tablet 1 tablet, By Mouth, Daily, 1 active tablet daily on day 1 of period, take 21 days of active tablets,skip placebos start the next pack, # 2 pack/packet, 1 Refills, Maintenance, 11/21/20 15:08:00 EDT,[facility]/pharmacy #[id number], Partial fill upon patient requ... Start Date: [...]
--- OUTSIDE RECORDS SUMMARY | 2024-02-21 01:37 | XMS_ITS | Continuity of Care Document ---
Author Organization [facility] Medicine Address [address], 4t [address] [place] [address]- Care Team Providers Care Halal Meat Packer Name Role Phone Marisela Macias DO Primary Care Sumeet kirk [id number] - 12[facility]26/20 [facility] Reproductive Medicine [address], 4th [address] [place] [address]- Attending Physician: Julissa Carey MD Referring Physician: Marisela Macias DO Allergies, Adverse Reactions, Alerts Substance Reaction Severity Status amoxicillin Active penicillin Active Medications Apri 0.15 mg-0.03 mg oral tablet 1 tablet, By Mouth, Daily, 1 active tablet daily on day 1 of period, take 21 days of active tablets,skip placebos start the next pack, # 2 pack/packet, 1 Refills, Maintenance, 11/21/20 15:08:00 EDT,[facility]/pharmacy #[id number], Partial fill upon patient requ... Start [...] oldest [Reference Range]: 1 Height 170.18 cm (12/15/20 2:47 PM) Social History Social History Type Response Smoking Status Never entered on: 10/16/20 Sex
--- OUTSIDE RECORDS SUMMARY | 2024-02-21 01:37 | XMS_ITS | Continuity of Care Document ---
Author Organization [facility] ter Address [address] [place] [address]- Care Team Providers Care Belt Repairer Name Role Phone Nyasia Cuenca MD Primary Care Physician Encounter [facility] [place] Date(s): 03/18/22 - 03/21/[address] [address] Discharge Disposition: A-D/C Home Attending Physician: Tyler [...] 0, Charo... Start Date: 03/21/22 Status: Ordered Acetaminophen Tablet 650 mg, Tablet, By Mouth, (1-3), may give 325mg per patient preference and re- dose with 325mg within 4 hours, if needed. Patient should only receive a total of 650mg of Acetaminophen every 4 hours., 03/21/22 2:00:00 EDT Start Date: 03/21/22 Stop Date: 03/21/22 Status: Completed CeleXA 40 mg oral tablet 40 mg, [...] capsule, 0 Refills, Maintenance, 03/21/22 6:41:00EDT, Capsule, [facility]/pharmacy #[id number], Partial fill upon patient [...] Tot. Refills... Start Date: 03/21/22 Status: Ordered Ibuprofen Tablet 800 mg, Tablet, By Mouth, (4-6), may give 400mg per patient preference and re- dose with 400mg within 8 hours, if needed. Patient should only receive a total of 800mg of Ibuprofen every 8 hours., 03/21/22 2:00:00 EDT Start Date: 03/21/22 Stop Date: 03/21/22 Status: Completed letrozole 2.5 mg oral tablet 2 tablets, By Mouth, Daily, Start taking on Day 3 of Cycle, # 10 tablet, 3 Refills, Maintenance, 02/26/21 17:11:00 EDT, [facility]/pharmacy #[id number], Partial fill upon patient request [...] 03/21/22 6:41:00 EDT, Route to Pharmacy Electronically, [facility]/pharmacy #[id number], Partial fill upon patient request if the prescriptio... Start Date: 03/21/22 Status: Ordered OxyCODONE IR Tablet 5 mg, Tablet, By Mouth, Every 3 hours, PRN for Pain , Severe, (7-10), Routine, 03/19/22 13:59:00 EDT Start Date: 03/19/22 Stop Date: 03/21/22 Status: Discontinued Multivitamins 1 tab, By Mouth, Daily at bedtime, 0 Refills, Maintenance, 10/16/20 12:20:00 EDT, Partial fill uponpatient request if the prescription is for a schedule II opioid drug. Start Date: 10/16/20 Status: Ordered Multivitamins with Folic Acid 1 mg oral tablet 1, By Mouth, Daily, # 100 tablet, 5 Refills, Maintenance, 06/05/21 11:02:00 EST, [facility]/pharmacy #[id number], Partial fill upon patient request if the prescription is for a schedule II opioid drug., 1 By Mouth Daily, 170.18, cm, 02/26/21 16:51:00 EDT, Height,... Start Date: 06/05/21 Status: Ordered simethicone 80 mg oral tablet, chewable 80 mg, Chew, 3 times a day, PRN, # 20 tablet, Refills 0, Tot. Refills 0, Maintenance, Gas, :41:00 EDT, Route to Pharmacy Electronically, [facility]/pharmacy #[id number], Partial fill upon patient request if the prescription is for a schedule II opioid . Start Date: 03/21/22 Status: Ordered Vitamin D3 [...] Confirmed Active Obese class II Confirmed Active Procedures Procedure Date Related Diagnosis Body Site Status delivery only; 03/18/22 C ompleted Vital Signs Most recent to oldest [Reference Range]: 1 2 3 4 5 Height 170 cm (03/21/22 9:46 AM) 170 cm (03/21/22 9:35 AM) 170 cm (03/21/22 4:30 AM) Weight 112.5 kg (03/18/22 9:17 AM) Oxygen Saturation [94-100 %] 97 % (03/21/22 9:35 AM) 99 % (03/21/22 4:30 AM) 98 % (03/21/22 12:00 AM) Pulse Rate [55-90 bpm] 65 bpm (03/21/22 9:35 AM) 69 bpm (03/21/22 4:30 AM) 80 bpm (03/21/22 12:00 AM) Body Mass Index [18.5-24.99 kg/m2] 38.93 kg/m2 *>HHI* (03/18/22 9:17 AM) Blood Pressure [90-138/55-84 mm Hg] 156/70mm Hg *H* (03/21/22 9:35 AM) 139/79mm Hg *H* (03/21/22 4:30 AM) 144/83mm Hg *H* (03/21/22 12:00 AM) Respiratory Rate [16-30 br/min] 20 br/min (03/21/22 9:35 AM) 20 br/min (03/21/22 9:25 AM) 17 br/min (03/21/22 4:34 AM) 18 br/min (03/21/22 4:34 AM) 18 br/min (03/21/22 4:34 AM) Temperature [96.8-100.4 DegF] 98.1 DegF (03/21/22 9:35 AM) 97.9 DegF (03/21/22 4:30 AM) 98.0 DegF (03/21/22 12:00 AM) Mode of Delivery (Oxygen) Room air (03/21/22 4:30 AM) Room air (03/21/22 12:00 AM) Room air (03/20/22 10:00 PM) Blood pressure sites Arm, right (03/21/22 4:30 AM) Arm, right (03/21/22 12:00 AM) Arm, right (03/20/22 10:00 PM) Temperature Route Oral (03/21/22 9:35 AM) Oral (03/21/22 4:30 AM) Oral (03/21/22 12:00 AM) Dry Weight 112.5 kg (03/18/22 9:17 AM) Social History Social History Type Response Smoking Status Never entered on: 10/16/20 Sex Patient Care team information Personnel Name: Nyasia Cuenca MD Address: Address: [address] [place] [address] [place] [address]
--- OUTSIDE RECORDS SUMMARY | 2024-02-21 01:37 | XMS_ITS | Continuity of Care Document ---
Author Organization [facility] e Medicine Address Unknown Care Team Providers Care Window/Distribution Clerk Name Role Phone Marion Vincenzo Marisela Primary Care Sumeet kirk [place] [facility] [place] Date(s): 06/04/21 - 07/04/21 [facility] Reproductive Medicine Allergies, Adverse Reactions, Alerts [...] tablet, 3 Refills, Maintenance, 02/26/21 17:11:00 EDT, [facility]/pharmacy #[id number], Partial fill upon patient [...] tablet, 5 Refills, Maintenance, 06/05/21 11:02:00 EST, [facility]/pharmacy #[id number], Partial fill upon patient [...]
--- OUTSIDE RECORDS SUMMARY | 2024-02-21 01:37 | XMS_ITS | Continuity of Care Document ---
Author Organization [facility] e Medicine Address Unknown Care Team Providers Care Violin Restorer Name Role Phone Marisela Macias DO Primary Care Sumeet kirk [place] [facility] [id number] Date(s): 05/15/21 - 05/22/21 [facility] Reproductive Medicine Attending Physician: Lilian Avendaño MD Referring Physician: Marisela Macias DO Allergies, [...] tablet, 3 Refills, Maintenance, 02/26/21 17:11:00 EDT, [facility]/pharmacy #[id number], Partial fill upon patient request if the [...] tablet, 5 Refills, Maintenance, 05/01/21 10:19:00 EST, [facility]/pharmacy #[id number], Partial fill upon patient request if [...]
--- OUTSIDE RECORDS SUMMARY | 2024-02-21 01:37 | XMS_ITS | Continuity of Care Document ---
Author Organization [facility] Address [address], 4t [address] [place] [address]- Care Team Providers Care Seo Associate Name Role Phone Marion Vincenzo Marisela Primary Care Sumeet kirk En[place] [facility] [place] Date(s): 11/24/20 - 12/24/20 [facility] Reproductive Medicine [address], 4th [address] [place] [address]- Allergies, Adverse Reactions, Alerts Substance Reaction Severity Status amoxicillin Active penicillin Active Medications Apri 0.15 mg-0.03 mg oral tablet 1 tablet, By Mouth, Daily, 1 active tablet daily on day 1 of period, take 21 days of active tablets,skip placebos start the next pack, # 2 pack/packet, 1 Refills, Maintenance, 11/21/20 15:08:00 EDT,[facility]/pharmacy #[id number], Partial fill upon patient requ... Start Date: [...]
--- OUTSIDE RECORDS SUMMARY | 2024-02-21 01:37 | XMS_ITS | Continuity of Care Document ---
Author Organization [facility] e Medicine Address [address], 4t [address] [place] [address]- Care Team Providers Care Manager Printing Name Role Phone Marisela Macias DO Primary Care Sumeet kirk En[place] [facility] [place] Date(s): 10/16/20 - 10/23/20 [facility] Reproductive Medicine [address], 4th [address] [place] [address]- Attending Physician: Julissa Carey MD Referring Physician: Thor Hogan MD Allergies, Adverse Reactions, Alerts Substance Reaction [...] Most recent to oldest [Reference Range]: 1 Weight 97.72 kg (10/16/20 12:04 PM) Weight Obtained Via Patient/family state d (10/16/20 12:04 PM) Social History Social History Type Response Smoking Status Never entered on: 10/16/20 Sex
--- OUTSIDE RECORDS SUMMARY | 2024-02-21 01:38 | XMS_ITS | Continuity of Care Document ---
Author Organization [facility] Medicine Address [address], 4t [address] [place] [address]- Care Team Providers Care Sand Mill Grinder Name Role Phone Marion Vincenzo Marisela Primary Care Sumeet kirk [place] [facility] [place](s): 11/24/20 - 12/24/20 [facility] Reproductive Medicine [address], 4th [address] [place] [address]- Allergies, Adverse Reactions, Alerts Substance Reaction Severity Status amoxicillin Active penicillin Active Medications Apri 0.15 mg-0.03 mg oral tablet 1 tablet, By Mouth, Daily, 1 active tablet daily on day 1 of period, take 21 days of active tablets,skip placebos start the next pack, # 2 pack/packet, 1 Refills, Maintenance, 11/21/20 15:08:00 EDT,[facility]/pharmacy #[id number], Partial fill upon patient requ... Start Date: [...]
--- OUTSIDE RECORDS SUMMARY | 2024-02-21 01:38 | XMS_ITS | Continuity of Care Document ---
Author Organization [facility] e Medicine Address Unknown Care Team Providers Care Engraver Hand Soft Metals Name Role Phone Marisela Macias DO Primary Care Sumeet kirk [place] [facility] [id number] Date(s): 07/15/21 - 07/22/21 [facility] Reproductive Medicine Attending Physician: Not on [...] 3 Refills, Maintenance, 02/26/21 17:11:00 EDT, [facility]/pharmacy #[id number], Partial fill upon patient request if the [...]
--- OUTSIDE RECORDS SUMMARY | 2024-02-21 01:38 | XMS_ITS | Continuity of Care Document ---
Author Organization [facility] Medicine Address [address], 4t [address] [place] [address]- Care Team Providers Care Apprenticeship Representative Name Role Phone Marisela Macias DO Primary Care Sumeet kirk En[place] [facility] [place] Date(s): 11/21/20 - 11/28/20 [facility] Reproductive Medicine [address], 4th [address] [place], [place] [address] Attending Physician: Not on Staff, Attending MD Referring Physician: Marisela Macias DO Allergies, Adverse Reactions, Alerts Substance Reaction Severity Status amoxicillin Active penicillin Active Medications Apri 0.15 mg-0.03 mg oral tablet 1 tablet, By Mouth, Daily, 1 active tablet daily on day 1 of period, take 21 days of active tablets,skip placebos start the next pack, # 2 pack/packet, 1 Refills, Maintenance, 11/21/20 15:08:00 EDT,[facility]/pharmacy #[id number], Partial fill upon patient requ... Start Date: [...] Refills, Soft Stop, 11/17/20 13:32:00 EDT, Tablet, [facility]/pharmacy #[id number], Partial fill upon patient request if the prescription is for a schedule II opioid drug., 170.18,... Start Date: 11/17/20 Status: Ordered doxycycline monohydrate 100 mg oral tablet 1 tablet = 100 mg, By Mouth, 2 times a day, # 28 tablet, 0 Refills, Maintenance, 11/10/20 17:41:00 EDT, Tablet, [facility]/pharmacy #[id number], Partial fill upon patient request [...] Instructions Replace Required Details, Routeto Pharmacy Electronically, [facility]/pharmacy #[id number], Pa... Start Date: 10/31/20 Status: Ordered Vitamin D3 oral tablet = 10 mcg, By Mouth, Daily, 0 Refills, Maintenance, 10/16/20 12:20:00 EDT, Partial fill upon patientrequest if the prescription is for a schedule II opioid drug. Start Date: 10/16/20 Status: Ordered Social History Social History Type Response Smoking Status Never entered on: 10/16/20 Sex
--- OUTSIDE RECORDS SUMMARY | 2024-02-21 01:38 | XMS_ITS | Continuity of Care Document ---
Author Organization [facility] e Medicine Address Unknown Care Team Providers Care Rib Stiffener And Heel Dipper Name Role Phone Marion Vincenzo Marisela HUBBARD Primary Care Sumeet kirk [place] [facility] [place] 08/26/21 [facility] Reproductive Medicine Allergies, Adverse Reactions, Alerts Substance [...] Refills, Maintenance, 02/26/21 17:11:00 EDT, [facility]/pharmacy #[id number], Partial fill upon patient request [...] tablet, 5 Refills, Maintenance, 06/05/21 11:02:00 EST, [facility]/pharmacy #[id number], Partial fill upon patient request [...]
--- OUTSIDE RECORDS SUMMARY | 2024-02-21 01:38 | XMS_ITS | Continuity of Care Document ---
Author Organization [facility] e Medicine Address Unknown Care Team Providers Care Cement Kiln Operator Name Role Phone Marino tobisheryl Marisela HUBBARD Primary Care Sumeet kirk En[place] [facility] [place](s): 01/01/21 - 01/31/21 [facility] Reproductive Medicine Allergies, Adverse Reactions, Alerts Substance Reaction Severity Status amoxicillin full body rash Active penicillin full body rash Active Medications Apri 0.15 mg-0.03 mg oral tablet See Instructions, TAKE 1 TABLET BY MOUTH ON DAY 1 OF PERIOD FOR 21 DAYS AND SKIP PLACEBOS, # 56 tablet, 1 Refills, Maintenance, [facility] [id number], 42, TAKE 1 TABLET BY MOUTH ON [...]
--- OUTSIDE RECORDS SUMMARY | 2024-02-21 01:38 | XMS_ITS | Continuity of Care Document ---
Author Organization [facility] e Medicine Address Unknown Care Team Providers Care Senior Administrator Support Name Role Phone Marisela Macias DO Primary Care Sumeet kirk [place] [facility] [place] 05/12/21 - 05/19/21 [facility] Reproductive Medicine Attending Physician: Not on [...] tablet, 3 Refills, Maintenance, 02/26/21 17:11:00 EDT, [facility]/pharmacy #[id number], Partial fill upon patient request if [...] tablet, 5 Refills, Maintenance, 05/01/21 10:19:00 EST, [facility]/pharmacy #[id number], Partial fill upon patient request if [...]
--- OUTSIDE RECORDS SUMMARY | 2024-02-21 01:38 | XMS_ITS | Continuity of Care Document ---
Author Organization [facility] Address [address] [place] [id number]- Care Team Providers Care Emergency Room Physician Name Role Phone Nyasia Cuenca MD Primary Care Physician [place] [facility] [place](s): 03/12/22 - 04/11/22 [facility] [address] [place] [id number] Allergies, Adverse Reactions, Alerts Substance Reaction [...] capsule, 0 Refills, Maintenance, 03/21/22 6:41:00EDT, Capsule, [facility]/pharmacy #[id number], Partial fill upon patient request [...] tablet, 3 Refills, Maintenance, 02/26/21 17:11:00 EDT, [facility]/pharmacy #[id number], Partial fill upon patient request [...] 03/21/22 6:41:00 EDT, Route to Pharmacy Electronically, [facility]/pharmacy #[id number], Partial fill upon patient request [...] tablet, 5 Refills, Maintenance, 06/05/21 11:02:00 EST, [facility]/pharmacy #[id number], Partial fill upon patient request if the prescription is for a schedule II opioid drug., 1 By Mouth Daily, 170.18, cm, 02/26/21 16:51:00 EDT, Height,... Start Date: 06/05/21 Status: Ordered simethicone 80 mg oral tablet, chewable 80 mg, Chew, 3 times a day, PRN, # 20 tablet, Refills 0, Tot. Refills 0, Maintenance, Gas, 226:41:00 EDT, Route to Pharmacy Electronically, [facility]/pharmacy #[id number], Partial fill upon patient request [...] Personnel Name: Nyasia Cuenca MD Address: Address: [address] [place] [id number]
--- OUTSIDE RECORDS SUMMARY | 2024-02-21 01:38 | XMS_ITS | Continuity of Care Document ---
Author Organization [facility] Address Unknown Care Team Providers Care Sales Representative [facility] Name Role Phone Marion Marisela Loya DO Primary Care Sumeet kirk Encounter [facility] [place] Date(s): 05/01/21 - 05/31/21 [facility] Allergies, Adverse Reactions, Alerts Substance [...] tablet, 3 Refills, Maintenance, 02/26/21 17:11:00 EDT, [facility]/pharmacy #[id number], Partial fill upon patient request if [...] tablet, 5 Refills, Maintenance, 05/01/21 10:19:00 EST, [facility]/pharmacy #[id number], Partial fill upon patient request if [...]
[2024-02-21 01:44] LABS: MANUAL DIFF FLAG NO
[2024-02-21 01:46] LABS: Basophils Percent Auto 0.3 % (0-2); Eosinophils Percent Auto 0.2 % (0-4); Hematocrit 35.8 % (37.0-47.0); Hemoglobin 12.4 g/dl (12.0-16.0); Imm Gran Abs Auto 0.09 X10*3/uL (0.00-0.03); Imm Gran Pct Auto 0.6 % (0.0-0.4); Lymphocytes Absolute Auto 1.8 X10*3/uL (1.2-4.9); Lymphocytes Percent Auto 12.7 % (20-40); Mean Corpuscular HGB Conc 34.6 g/dl (31.0-35.0); Mean Corpuscular Hemoglobin 29.7 pg (27.0-33.0); Mean Corpuscular Volume 85.9 fL (80.0-98.0); Mean Platelet Volume 9.5 fL (9.4-12.3); Monocytes Absolute Auto 0.5 X10*3/uL (0.1-1.2); Monocytes Percent Auto 3.6 % (2-11); Neutrophils Absolute Auto 11.6 x10*3/uL (2.0-8.3); Neutrophils Percent Auto 82.6 % (45-73); Platelet Count 203 X10*3/uL (160-400); Red Blood Count 4.17 X10*6/uL (4.20-5.50); Red Cell Distribution Width 13.9 % (11.0-16.0)
[2024-02-21 01:59] LABS: Alanine Aminotransferase 11 U/L (0-31); Albumin Level 3.7 g/dL (3.5-5.0); Alkaline Phosphatase 80 U/L (39-117); Anion Gap 17 (12-20); Aspartate Amino Transferase 15 U/L (5-31); Bilirubin Total 0.2 mg/dL (0.0-1.0); Blood Urea Nitrogen 12 mg/dL (9-16); Calcium 9.1 mg/dL (8.4-10.2); Carbon Dioxide 22 mmol/L (22-29); Chloride 104 mmol/L (96-108); Creatinine Clr Calc Pharmacy 95.8; Estimated Glomerular Filt Rate > 60; Glucose Random 113 mg/dL (60-115); Potassium 3.7 mmol/L (3.3-5.1); Sodium 139 mmol/L (135-145); Total Protein 6.8 g/dL (6.5-8.0)
[2024-02-21 03:16] LABS: HCG Quantitative < 2 mIU/mL
[2024-02-21 03:34] VITALS: BP 117/59; PULSE 75; RESP 16; TEMP 36.9; O2SAT 96
[2024-02-21] MEDS: Tamsulosin HCL 0.4 MG CAPSULE PO (04:10)
--- NOTE | 2024-02-21 04:14 | PC.NURSE ---
medicated pt as ordered, pt denies any needs at this time
[2024-02-21 05:41] LABS: Appearance Urine Cloudy; Color Urine Yellow; Glucose Urine UA Negative (Negative); Leukocyte Esterase Urine Trace (Negative); Nitrite Urine Negative (Negative); PH 7.5 (5.0-9.0); UMIC TRIGGER UACC YES; Urine Blood Trace (Negative); Urine Ketones Negative (Negative); Urine Protein Negative (Neg-Trace)
[2024-02-21 05:45] LABS: Bacteria Urine None Seen (None Seen); Hyaline Casts Urine 0-2 /LPF (0-2); WBC Urine 0-5 /HPF (0-5)
[2024-02-21 06:50] VITALS: BP 127/70; PULSE 70; RESP 16; TEMP 36.6; O2SAT 95
--- NOTE | 2024-02-21 06:53 | PC.NURSE ---
report given to Teresa KAMARA
[2024-02-21] MEDS: Ondansetron ODT 4 MG TAB.RAPDIS TRANSLINGU (07:07)
[2024-02-21] MEDS: oxyCODONE HCl Immed Release 5 MG TABLET PO (07:07)
[2024-02-21] MEDS: Ibuprofen 400 MG TABLET PO (07:07)
[2024-02-21 07:13] VITALS: BP 131/73; PULSE 73; RESP 16; TEMP 36.7; O2SAT 95
== END 2024-02-21 07:23 | disposition home or self-care (01) ==
PROVIDERS: Emergency Provider Emergency Medicine; PCP Internal Medicine
DX: N13.2 Hydronephrosis with renal and ureteral calculous obstruction (principal); R10.9 Unspecified abdominal pain
CPT/HCPCS: 36415; 74176; 80053; 81001; 84702; 85025; 96361; 96374; 96375; 99284; J1790; J1885; J2270